=== PATIENT | male | born 1955 | race Caucasian/White ===

== ENCOUNTER 2018-02-15 13:00 | Inpatient (IN) | payer OTHER ==
[~2018-02-15] VITALS: Ht 170.2 cm; Wt 79.0 kg
[~2018-02-15 13:00] MED LIST: ARTIFICIAL TEA3.5 G1 OPH; DEPAKOTE250 M1 PO; FLOMAX0.4 M1 PO; FOLIC ACID1 M1 PO; KEPPRA500 M1 PO; LOVENOX150 MG/1 M SC; MELATONIN3 M4 PO; OLANZAPINE7.5 M1 PO; ONE DAILY COMP1 EACH PO; THIAMINE HCL100 M1 PO; ZYPREXA2.5 M1 PO
--- NOTE | 2018-02-15 13:25 | ED GENERAL ADULT ---
See Addendum History of Present Illness General Chief Complaint: General Adult Stated Complaint: BIBA FOR ABNORMAL LABS Source: patient Exam Limitations: poor historian Vital Signs & Intake/Output Vital Signs & Intake/Output Vital Signs Date Time Temp Pulse Resp B/P B/P Pulse O2 O2 Flow FiO2 Mean Ox Delivery Rate 02/15 1658 98.4 114 18 119/63 96 Room Air 02/15 1445 98.0 80 18 113/66 96 Room Air 02/15 1355 99.2 88 20 125/60 100 Room Air 02/15 1332 98 Room Air 02/15 1310 99.0 109 16 165/94 98 Room Air Allergies Coded Allergies: aspirin (HEART PALPITATIONS 08/04/17) Reconcile Medications Divalproex Sodium (Depakote) 250 MG TABLET.DR 1 TAB PO TID MENTAL HEALTH ( Reported) Duloxetine HCl 40 MG CAPSULE.DR 1 CAP PO 1700 UNKNOWN (Reported) Enoxaparin Sodium (Lovenox) 150 MG/ML SYRINGE 1 INJ SC BID BLOOD THINNER ( Reported) Folic Acid 1 MG TABLET 1 TAB PO DAILY VITAMIN SUPPORT (Reported) Levetiracetam (Keppra) 500 MG TABLET 1 TAB PO BID SEIZURES (Reported) Melatonin 3 MG TABLET 1 TAB PO QPM SLEEP (Reported) Mineral Oil/Petrolatum,White (Artificial Tears Eye Ointment) 15 %-83 % OINT...G. 1 JOSÉ ANTONIO OPH QPM EYE (Reported) Multivitamin With Minerals (One Daily Complete) 1 EACH TABLET 1 TAB PO DAILY VITAMIN SUPPORT (Reported) Olanzapine 7.5 MG TABLET 1 TAB PO QPM MENTAL HEALTH (Reported) Olanzapine (Zyprexa) 2.5 MG TABLET 1 TAB PO DAILY MENTAL HEALTH (Reported) Tamsulosin HCl (Flomax) 0.4 MG CAP.ER.24H 1 CAP PO DAILY PROSTATE (Reported) Tramadol HCl 50 MG TABLET 1 TAB PO Q6P PRN PAIN (Reported) Triage Note: PT TO ER C/C RLE ECCHYMOTIC AREA X 3 DAYS. DENIES KNOWN INJURY OR TRAUMA. PT USES LOVENOX INJ FOR ?CLOTTING DISORDER. H/H FROM LAB WORK TODAY 7.4/22.7 DENIES HX OF NEEDING TRANSFUSION OR ANEMIA. C/O 1 WEEK HX OF DIZZINESS W/ POSITION CHANGE. DENIES BLOOD IN URINE/STOOL/EMESIS. Triage Nurses Notes Reviewed? yes Onset: Evening Duration: hour(s): Timing: recent history HPI: 02/10/18 3 PM 62-year-old male presents to the emergency department for abnormal labs. Apparently the patient lives at [place]. He has a history of traumatic brain injury. He was found to be significantly anemic. He does have a history of a clotting disorder. He does have erythema and edema in his right lower extremity. Past History Travel History Traveled to [place] past 21 day No Medical History Any Pertinent Medical History? see below for history Neurological: TBI SEIZURES Respiratory: obstructive sleep apnea Psychiatric: bipolar disease, schizophrenia Blood Disorders: "CLOTS" Surgical History Surgical History: non-contributory Psychosocial History What is your primary language Armenian Tobacco Use: Current Daily Use Daily Tobacco Use Amount/Type: => 5 Cigarettes daily Family History Hx Contributory? No Review of Systems Review of Systems Constitutional: Reports: see HPI. EENTM: Reports: no symptoms. Respiratory: Reports: no symptoms. Cardiovascular: Reports: no symptoms. GI: Reports: no symptoms. Genitourinary: Reports: no symptoms. Musculoskeletal: Reports: see HPI. Skin: Reports: rash. Neurological/Psychological: Reports: no symptoms. Hematologic/Endocrine: Denies: bruising, bleeding. Immunologic/Allergic: Reports: no symptoms. Physical Exam Physical Exam General Appearance: alert, awake, anxious Head: atraumatic, normal appearance Eyes: Bilateral: normal appearance, PERRL, EOMI. Ears, Nose, Throat: normal pharynx, normal ENT inspection Neck: normal inspection, supple, full range of motion Respiratory: chest non-tender, no respiratory distress Cardiovascular: regular rate/rhythm Peripheral Pulses: 4+ radial (R), 4+ radial (L) Gastrointestinal: non-tender Rectal: heme negative stool Back: normal range of motion Extremities: pedal edema, swelling, tenderness Neurologic/Psych: awake, alert Skin: ecchymosis, rash Core Measures ACS in differential dx? No CVA/TIA Diagnosis: No Sepsis Present: No Sepsis Focused Exam Completed? No Progress Differential Diagnoses I considered the following diagnoses in my evaluation of the patient: [Anemia, hematoma, DVT] Plan of Care: Orders Procedure Date/time Status CBC WITHOUT DIFFERENTIAL 02/16 600 Active BASIC ELECTROLYTES PLUS BUN&CR 02/16 600 Active Heart Healthy Diet 02/15 D Active Lab Add-on Test 02/15 1549 Active Lab Add-on Test 02/15 1547 Active Pathway - chart 02/15 1546 Active House Staff 02/15 1546 Active Patient Data 02/15 1546 Active Code Status 02/15 1546 Active Lab Add-on Test 02/15 1542 Active CULTURE,URINE 02/15 1542 Active URINE LYTES, SPOT 02/15 1542 Active URINALYSIS 02/15 1542 Active BLOOD PRODUCT PICKUP 02/15 1520 Active Patient Data 02/15 1519 Active Add-on Test (ER Only) 02/15 1514 Active Add-on Test (ER Only) 02/15 1512 Active LEUKOCYTE POOR (PACKED CELLS) 02/15 1510 Active ED Holding Orders 02/15 1509 Active Admit to inpatient 02/15 1509 Active Vital Signs 02/15 1509 Active Code Status 02/15 1509 Complete TSH REFLEX 02/15 1323 Active TOTAL IRON BINDING CAPACITY 02/15 1323 Active RETICULOCYTE COUNT 02/15 1323 Complete SERUM OSMOLALITY 02/15 1323 Active LDH (LACT ACID DEHYDROGENASE) 02/15 1323 Active FOLIC ACID 02/15 1323 Active FERRITIN 02/15 1323 Active SERUM IRON 02/15 1323 Active D-DIMER 02/15 1323 Complete VITAMIN B12 02/15 1323 Active URINALYSIS 02/15 1313 Active TROPONIN LEVEL 02/15 1313 Active PROTHROMBIN TIME 02/15 1313 Complete HAPTOGLOBIN 02/15 1313 Active COMPREHENSIVE METABOLIC PANEL 02/15 1313 Active CBC WITHOUT DIFFERENTIAL 02/15 1313 Complete EKG 02/15 1313 Active TYPE & SCREEN (NOT X-MATCH) 02/15 1313 Active VTE Mechanical Prophylaxis 02/15 UNK Active Vital Signs 02/15 UNK Active MISTAKE 02/15 UNK Active Intake & Output 02/15 UNK Active Hemoccult 02/15 UNK Active Activity/Ambulation 02/15 UNK Active Laboratory Tests 02/15/ 1323: Anion Gap 4 L, Estimated GFR > 60, BUN/Creatinine Ratio 30.0 H, Glucose 132 H , Serum Osmolality Pending, Calcium 8.9, Iron 24 L, TIBC 309, Ferritin 94.4, Total Bilirubin 0.5, AST 67 H, ALT 46, Alkaline Phosphatase 60, Lactate Dehydrogenase 531, Troponin I < 0.01, Total Protein 5.5 L, Albumin 2.9 L, Globulin 2.6, Albumin/Globulin Ratio 1.1, Vitamin B12 Pending, Folate > 20.0 H, TSH &T3 &Free T4 Intrp 1.930, PT 14.4 H, INR 1.32 H, D-Dimer High Sensitivty 846 H, CBC w Diff MAN DIFF ORDERED, RBC 2.24 L, MCV 93.4, MCH 31.8 H, MCHC 34.0, RDW 15.1 H, MPV 8.0, Gran % 75.5 H, Lymphocytes % 11.5 L, Monocytes % 12.3 H, Eosinophils % 0.3, Basophils % 0.4, Absolute Granulocytes 6.6 H, Segmented Neutrophils 79 H, Absolute Lymphocytes 1.0 L, Lymphocytes 12 L, Monocytes 8, Absolute Monocytes 1.1 H, Eosinophils 1, Absolute Eosinophils 0, Absolute Basophils 0, Platelet Estimate ADEQUATE, Polychromasia 1+, Hypochromic- Microcytic 2+, Anisocytosis 1+, Retic Count 5.32 H 02/15/18 1313: Haptoglobin Pending Microbiology 02/15 1542 URINE ROUT: Urine Culture - ORD IMPRESSION: 1. No evidence of deep venous thrombosis involving the lower extremity. 2. There are 2 complex fluid collections in the right groin which may be hematomas. DICTATED BY: Naga Monsalve MD DATE/TIME DICTATED:02/15/181605 CHRONOMETER ASSEMBLER:SHAWN DATE/TIME TRANSCRIBED:02/15/181605 CONFIDENTIAL, DO NOT COPY WITHOUT APPROPRIATE AUTHORIZATION. <Electronically signed in Other Vendor System> SIGNED BY: Naga Monsalve MD 02/15/18 1614 Initial ED EKG: none Departure Departure Disposition: STILL A PATIENT Condition: Stable Clinical Impression Primary Impression: Anemia Secondary Impressions: Adverse drug reaction, Hematoma Referrals: Deuce Chery MD (PCP/Family) Departure Forms: Customer Survey General Discharge Information Admission Note Spoke With: Deuce Chery MD Documentation of Exam: Documentation of any treatments & extenuating circumstances including Concerns Regarding Discharge (functional status, medication knowledge or non-compliance, living conditions, etc.) that warrant an admission rather than observation: [He needs admission for blood transfusions, workup of anemia, consider hematology consult, evaluation of the right lower extremity swelling, patient has been on elevated Lovenox dosage Critical Care Note Critical Care Note Critical Care Time: non-applicable
[2018-02-15 13:34] LABS: ABSOLUTE BASOPHIL COUNT 0 /CUMM (0.0-0.2); ABSOLUTE EOSINOPHIL COUNT 0 /CUMM (0.0-0.7)
[2018-02-15 13:38] LABS: ABSOLUTE GRANULOCYTE CT 6.6 /CUMM (1.4-6.5); ABSOLUTE MONOCYTE COUNT 1.1 /CUMM (0.10-0.60); BASOPHIL % 0.4 % (0.0-2.0); EOSINOPHIL % 0.3 % (0-5); GRANULOCYTE % 75.5 % (42.2-75.2); HEMATOCRIT 20.9 % (42-52); MEAN CORPUSCULAR HGB 31.8 PG (27.0-31.0); MEAN CORPUSCULAR VOLUME 93.4 FL (80.0-94.0); PLATELET COUNT 390 /CUMM (130-400); RBC DISTRIBUTION WIDTH 15.1 % (11.5-14.5); RED BLOOD CELL CT 2.24 /CUMM (4.70-6.10); WHITE BLOOD CELL COUNT 8.7 /CUMM (4.8-10.8)
[2018-02-15 13:40] LABS: PT 14.4 SEC (9.4-12.5)
[2018-02-15] MEDS ORDERED: TRAMADOL HCL50 M1 PO (14:30)
[2018-02-15] MEDS ORDERED: DULOXETINE HCL40 MG PO (14:32)
--- NOTE | 2018-02-15 15:37 | History & Physical ---
Benjamin Rojas MD 02/15/18 1537: General Information and HPI MD Statement: I have seen and personally examined ROGER SCHULZ and documented this H&P. The patient is a 62 year old M who presented with a patient stated chief complaint of right lower extremity bruising and low blood counts. Source of Information: patient, old records, [facility] Exam Limitations: no limitations History of Present Illness: 62 year old male with past medical history of alcohol use disorder, bipolar disorder, schizophrenia, traumatic brain injury, seizures/epilepsy, DVT currently on lovenox with reported history of pradaxa failure and IVC filter placement, and fall with subdural hematoma requiring craniotomy was brought in by ambulance from [place] with right lower extremity bruising and a decreased hematocrit and hemoglobin. He is guiaic negative, and receives lovenox 150mg sc bid according to the [facility], although his documented weight is 77kg. 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 Fuentes ([facility]). The patient has been in his usual state of health except for over the past month he has had significant decline in his weight and oral intake, and has lost 19 pounds, currently on meal protein supplementation at [place]. He was complaining of right hip and back pain on 01/19 and was evaluated by orthopedics. They started tramadol because of his history of falls and subdural hematoma to avoid narcotics. X-rays were performed at that time and were reportedly all negative. Three days ago he developed he complained of significant pain of the right hip and stopped ambulating. He was re-evaluated by orthopedics yesterday and significant ecchymosis to the posterior right thigh was noted and they recommended continuing tramadol and icing the leg. There was no history of trauma. He had labs checked at that time and was sent to [facility] for anemia, hemoglobin of 7. He is complaining of significant pain in the right thigh, throbbing 3/10 at rest, that becomes severe with palpation and ambulation. He has bruising along the entirety of the posterior-medial right thigh worsening proximally to the inguinal canal, with additional bruising across his lower abdomen and right axilla. On review of systems, he has been having poor PO intake, weight loss, weakness, malaise, and feeling lightheaded without any chest pain, dyspnea, hematuria, melena, hematochezia or hematemesis. He has a family history of DVT. He is a current smoker 1/4ppd and allergic to aspirin, reportedly with anxiety, palpitations, and dyspnea. In the ED, he was transfused one unit of blood and underwent negative ultrasound for DVT, x-ray negative for fracture in the right leg, and CT abdomen negative for retroperitoneal hemorrhage. Allergies/Medications Allergies: Coded Allergies: aspirin (HEART PALPITATIONS 08/04/17) Home Med list Divalproex Sodium (Depakote) 250 MG TABLET.DR 1 TAB PO TID MENTAL HEALTH ( Reported) Duloxetine HCl 40 MG CAPSULE.DR 1 CAP PO 1700 UNKNOWN (Reported) Enoxaparin Sodium (Lovenox) 150 MG/ML SYRINGE 1 INJ SC BID BLOOD THINNER ( Reported) Folic Acid 1 MG TABLET 1 TAB PO DAILY VITAMIN SUPPORT (Reported) Levetiracetam (Keppra) 500 MG TABLET 1 TAB PO BID SEIZURES (Reported) Melatonin 3 MG TABLET 1 TAB PO QPM SLEEP (Reported) Mineral Oil/Petrolatum,White (Artificial Tears Eye Ointment) 15 %-83 % OINT...G. 1 JOSÉ ANTONIO OPH QPM EYE (Reported) Multivitamin With Minerals (One Daily Complete) 1 EACH TABLET 1 TAB PO DAILY VITAMIN SUPPORT (Reported) Olanzapine 7.5 MG TABLET 1 TAB PO QPM MENTAL HEALTH (Reported) Olanzapine (Zyprexa) 2.5 MG TABLET 1 TAB PO DAILY MENTAL HEALTH (Reported) Tamsulosin HCl (Flomax) 0.4 MG CAP.ER.24H 1 CAP PO DAILY PROSTATE (Reported) Tramadol HCl 50 MG TABLET 1 TAB PO Q6P PRN PAIN (Reported) Compliance With Home Meds: GOOD Past History Travel History Traveled to [place] past 21 day No Medical History Neurological: TBI SEIZURES Respiratory: obstructive sleep apnea Psychiatric: bipolar disease, schizophrenia Blood Disorders: "CLOTS" Surgical History Surgical History: non-contributory Past Family/Social History Family History Relations & Conditions if any FATHER DVT FH: myocardial infarction uncle FH: lung cancer Psychosocial History Smoking Status: Current Everyday Smoker ETOH Use: previous history of abuse Illicit Drug Use: denies illicit drug use Functional Ability ADLs Independent: dressing, eating, toileting, bathing. Ambulation: independent IADLs Needs Assist: shopping, housework, finances, food prep, telephone, transportation, medication admin. Review of Systems Review of Systems Constitutional: Reports: malaise, weakness. Denies: chills, fever. EENTM: Reports: no symptoms. Cardiovascular: Denies: chest pain, palpitations. Respiratory: Reports: no symptoms. GI: Reports: abdominal pain. Denies: constipation, diarrhea, melena, nausea, bloody stool, vomiting. Genitourinary: Denies: dysuria, frequency. Musculoskeletal: Reports: back pain, joint pain. Skin: Reports: no symptoms. Neurological/Psychological: Reports: petit mal seizures. Denies: headache. Hematologic/Endocrine: Reports: bruising, bleeding. Immunologic/Allergic: Reports: no symptoms. All Other Systems: Reviewed and Negative Exam & Diagnostic Data Last 24 Hrs of Vital Signs/I&O Vital Signs Date Time Temp Pulse Resp B/P B/P Pulse O2 O2 Flow FiO2 Mean Ox Delivery Rate 02/15 1445 98.0 80 18 113/66 96 Room Air 02/15 1355 99.2 88 20 125/60 100 Room Air 02/15 1332 98 Room Air 02/15 1310 99.0 109 16 165/94 98 Room Air Intake & Output 02/15 1600 02/15 0800 02/15 0000 Intake Total Output Total Balance Patient 77.111 kg Weight Weight Reported by Patient Measurement Method Physical Exam General Appearance Alert, Oriented X3, Cooperative, No Acute Distress HEENT palpable cranial defect from craniotomy, dry mucous membranes Neck Supple, No JVD Cardiovascular Normal S1, Normal S2, No Murmurs, tachycardic to 120 on examination Lungs Clear to Auscultation, Normal Air Movement Abdomen Normal Bowel Sounds, Soft, No Tenderness, No Masses, ecchymosis on lower abdomen R>L, and right groin Extremities No Clubbing, No Cyanosis, No Edema, Normal Pulses, right thigh swollen and bruised, ecchymosis primarily posterior but extends medially to proximal thigh and inguinal canal, neurovascularly intact RLE, no diminished sensation Last 24 Hrs of Labs/Campbell: Laboratory Tests 02/15/18 1323: Anion Gap 4 L, Estimated GFR > 60, BUN/Creatinine Ratio 30.0 H, Glucose 132 H , Serum Osmolality Pending, Calcium 8.9, Iron 24 L, TIBC Pending, Ferritin Pending, Total Bilirubin 0.5, AST 67 H, ALT 46, Alkaline Phosphatase 60, Lactate Dehydrogenase Pending, Troponin I < 0.01, Total Protein 5.5 L, Albumin 2.9 L, Globulin 2.6, Albumin/Globulin Ratio 1.1, Vitamin B12 Pending, Folate Pending, TSH &T3 &Free T4 Intrp Pending, PT 14.4 H, INR 1.32 H, D-Dimer High Sensitivty 846 H, CBC w Diff NO MAN DIFF REQ, RBC 2.24 L, MCV 93.4, MCH 31.8 H, MCHC 34.0, RDW 15.1 H, MPV 8.0, Gran % 75.5 H, Lymphocytes % 11.5 L, Monocytes % 12.3 H, Eosinophils % 0.3, Basophils % 0.4, Absolute Granulocytes 6.6 H, Absolute Lymphocytes 1.0 L, Absolute Monocytes 1.1 H, Absolute Eosinophils 0, Absolute Basophils 0, Retic Count Pending Microbiology 02/15 1542 URINE ROUT: Urine Culture - ORD Diagnostic Data CXR Results RLE x-ray There is no fracture or malalignment. The right hip and right knee are unremarkable. There are no other bony or soft tissue abnormalities. Other Results CT abdomen/pelvis IMPRESSION: Hemorrhage incompletely included in the right proximal thigh. I suspect hemorrhage involving the right iliacus and bilateral dorsal paraspinal muscles. No retroperitoneal hemorrhage. There is an IVC filter The hemorrhages do not appear contiguous. Correlate with coagulopathy RLE u/s IMPRESSION: 1. No evidence of deep venous thrombosis involving the lower extremity. 2. There are 2 complex fluid collections in the right groin which may be hematomas. Assessment/Plan Assessment: 62 year old male with past medical history of alcohol use disorder, bipolar disorder, schizophrenia, seizures/epilepsy, 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 Fuentes , traumatic brain injury and h/o subdural hematoma requiring craniotomy and IVC filter placement perioperatively, was brought in by ambulance from [place] with right lower extremity bruising and a decreased hematocrit and hemoglobin. He is guiaic negative, and receives lovenox 150mg sc bid according to the [facility], which is the likely the cause of his bleeding. Anemia: acute blood loss 2 large bore IVs Check CT abdomen pelvis to rule out retroperitoneal hematoma Hemoglobin 7.1, last 12-13 in November MCV 93, reticulocytes 5.4, iron studies pending Hold lovenox Type and screen Transfuse 1 unit pRBCs, will likely need another given tachycardia Repeat CBC post transfusion Femur x-ray negative for fracture, lower extremity ultrasound negative for DVT Contact Dr. Fuentes, hematology to obtain records discuss lovenox, [phone] Consider surgery for assessment of compartment pressures Check creatine kinase and lactic acid Intravascular volume resuscitation with normal saline Hyponatremia: hypovolemic from acute blood loss Serum sodium 129, last 141 only 4 days prior to admission Check serum and urine osmoles, and electrolytes Hypovolemic, with orthostatic vital signs per my exam, tachycardia upon sitting >120 Elevated bicarb, low chloride, prerenal azotemia, elevated BUN:Cr ratio NS and packed red blood cell transfusion for intravascular volume resuscitation for labs consistent with contraction alkalosis and hypovolemia Repeat BEP after blood and crystalloid to reassess sodium Valproic acid levels subtherapeutic, unlikely cause of hyponatremia Check TSHR Psych,Seizures, h/o TBI: Continue keppra, zyprexa, cymbalta, and depakote If sodium fails to improve with fluid resuscitation, consider these medications as contributors Regular diet DVT ppx-mechanical ALPs, lovenox on hold Full code As Ranked By This Provider Problem List: 1. Hematoma 2. Acute blood loss anemia 3. Anemia Core Measures/Misc (05/07) Acute Coronary Syndrome ACS Diagnosis: No Congestive Heart Failure Congestive Heart Failure Diagnosis No Cerebrovascular Accident CVA/TIA Diagnosis: No VTE (View Protocol) VTE Risk Factors Age>40 No Mechanical VTE Prophylaxis d/t N/A MechProphylax Ordered No VTE Pharm Prophylaxis d/t Bleeding (Active) Sepsis (View protocol) Sepsis Present: No If YES complete Sepsis Event Note If YES complete Sepsis Event Note Adry DOMINGO,Bess 02/15/18 1543: Core Measures/Misc (05/07) Sepsis (View protocol) If YES complete Sepsis Event Note If YES complete Sepsis Event Note Resident Review Statement Resident Statement: examined this patient, discussed with internal controls consultant, agreed with internal controls consultant, discussed with family, reviewed EMR data (avail), discussed with nursing , discussed with case mgmt, reviewed images, amended to note Other Findings: Patient is a 62-year-old male with past history significant for bipolar disorder , clotting disorder with warfarin/Pradaxa failure, IVC filter placement, epilepsy, subdural hematoma status post cranioplasty presented to [facility] after found to have abnormal labs at the facility. Patient started experiencing right thigh ecchymosis for the past few days which progressively got worse. Today morning patient was unable to move and upon checking CBC it was found to that hemoglobin dropped to 7.4/22.7. He was sent to ER for further evaluation. Patient denies any acute trauma. He usually takes his subcutaneous Lovenox shots into his abdomen. Medications to be confirmed with facility Assessment Patient is 62-year-old gentleman with significant clotting history, IVC filter and previous oral warfarin and dabigatran failure subsequently started on subcutaneous Lovenox. He started having right thigh ecchymosis for the past few days with no obvious trauma. Vital signs are significant for tachycardia. Physical exam which was significant ecchymosis in the right eye region extending throughout. Pulses present. No abdominal tenderness. Labs as noted above had significant drop in H&H compared to previous hemoglobin level. Imaging is significant for 2 large fluid collections right groin and right thigh. No evident vascular injury are vascular source. Imaging ruled out retroperitoneal reticulation of blood. Confined to musculature. Problem list 1. Hematoma involving Paraspinal and iliacus muscles 2. Acute blood loss anemia 3. Clotting disorder with IVC filter in place, on subcutaneous Lovenox 4. Hyponatremia 5. Bipolar disorder 6. Epilepsy 7. Subdural hematoma with history of right cranioplasty Plan Admitted to general medicine floor Transfuse with hemoglobin goal greater than 8 Hold subcutaneous Lovenox Hematology consult - patient follows Dr. Fuentes Frequent CBC to monitor improvement/further bleeding Check urine osmolarity, serum was positive and urine lites Agree with 1 L of normal saline but needs frequent checking of sodium Frequent examinations of right thigh Warm compressions and ice packings of right thigh Continue home medications including divalproex 250 mg TID, olanzapine 2.5 mg QAM /7.5 mg QPM Continue Flomax 0.4 mg daily Need confirmation about off on Keppra (per patient) from the facility DVT prophylaxis with Alps Full code
--- NOTE | 2018-02-15 16:14 | ULTRASOUND REPORT ---
EXAMINATION: US TRIPLEX LOWER EXTREMITY, RIGHT CLINICAL INFORMATION: Edema, swelling, skin changes. COMPARISON: None TECHNIQUE: Color-flow triplex imaging with spectral analysis and compression Doppler were performed on the lower extremity. FINDINGS: Respiratory variation, normal compression and augmented flow are noted throughout the lower extremity. The visualized common femoral vein, superficial femoral vein, profunda femoral vein, popliteal vein and midcalf peroneal and posterior tibial venous segments show no evidence of deep venous thrombosis. There is no Lawler's cyst. There are 2 adjacent complex fluid collections in the right groin, right thigh. There is bruising over this area. May be a hematoma therefore. The collection is nonvascular with low-level echoes. There is a collection measuring 12.6 x 4.5 x 6.7 cm. There is a collection measuring 8.3 x 2.1 x 2.7 cm. IMPRESSION: 1. No evidence of deep venous thrombosis involving the lower extremity. 2. There are 2 complex fluid collections in the right groin which may be hematomas.
--- NOTE | 2018-02-15 16:52 | RADIOLOGY REPORT ---
EXAMINATION: XR FEMUR, RIGHT CLINICAL INFORMATION: Swelling right lower extremity. COMPARISON: None TECHNIQUE: AP and frog lateral views (7 images) of the right femur were obtained. FINDINGS: There is no fracture or malalignment. The right hip and right knee are unremarkable. There are no other bony or soft tissue abnormalities. IMPRESSION: Unremarkable radiographs of the right femur.
[2018-02-15 18:30] VITALS: BP 122/70
--- NOTE | 2018-02-15 18:38 | CT SCAN REPORT ---
EXAMINATION: CT ABDOMEN AND PELVIS WITHOUT CONTRAST CLINICAL INFORMATION: Acute blood loss.. Anemia COMPARISON: None TECHNIQUE: Multidetector volumetric imaging was performed from the superior aspect of the liver through the pubic symphysis. Sagittal and coronal reformatted images were obtained on the technologist's workstation. DLP: 430 mGy-cm FINDINGS: LUNG BASES: No suspicious abnormality in the visualized lower chest LIVER, GALLBLADDER, AND BILIARY TREE: No suspicious focal liver lesion. There is no opaque gallstone. There is no biliary dilation. PANCREAS: No suspicious abnormality SPLEEN: Within normal limits ADRENAL GLANDS: Normal KIDNEYS AND URETERS: There is a 0.5 cm nonobstructing lower pole left renal calculus. No significant dilation of the intrarenal collecting system on either side. There is a partially exophytic 1.7 cm intermediate density lesion arising from the posterior mid right kidney. This does not have the CT features of a simple cyst. There is a 2 mm nonobstructing upper pole right renal calculus. BLADDER: The bladder is distended. No focal abnormality. GASTROINTESTINAL TRACT: No localized colonic wall thickening. No small bowel dilation. The stomach is not well distended. ABDOMINAL WALL: There are nodular densities in the superficial fat likely related to injections. The lowest images suggest a hematoma in the medial right thigh. This is not completely included. This could represent acute or subacute hemorrhage. Stranding extends towards the inguinal canal. There is stranding in the ventral soft tissues at the right groin. LYMPH NODES: There are no enlarged abdominal or pelvic lymph nodes. There is no free intraperitoneal fluid. VASCULAR: There is no abdominal aortic aneurysm. There is no retroperitoneal hemorrhage. The psoas muscles are fairly symmetric. There is an asymmetric enlargement of the right iliac is. This may represent a hematoma. There may be some enlargement of the dorsal soft tissues on the right in the lumbar region. This extends into the lower thorax. There is some asymmetric enlargement of the dorsal soft tissues of the lumbosacral junction on the left. There is an IVC filter. PELVIC VISCERA: Coarse calcifications. No suspicious mass OSSEOUS STRUCTURES: There is ankylosis of the SI joints. No acute fracture demonstrated. IMPRESSION: Hemorrhage incompletely included in the right proximal thigh. I suspect hemorrhage involving the right iliacus and bilateral dorsal paraspinal muscles. No retroperitoneal hemorrhage. There is an IVC filter The hemorrhages do not appear contiguous. Correlate with coagulopathy
--- NOTE | 2018-02-15 18:45 | Admission Certification ---
Admission Certification Certification Statement - As attending physician, I certify that at the time of - admission, based on clinical presentation, severity of - symptoms, need for further diagnostic testing and - therapeutic interventions, and risk of adverse outcomes - without in-hospital treatment, in my clinical assessment, - this patient requires an acute hospital stay for a minimum - of two nights or longer. I have also considered psychsocial - factors such as support system, advanced age, financial - issues, cognitive issues, and failed out-patient treatments, - past re-admission history, safety of patient, and lack of - compliance as applicable. Specific rationale supporting this admission is: Anemia possibly blood loss. Hematoma right thigh and hip area. Right leg pain.
--- NOTE | 2018-02-15 18:50 | PN- Att Addend ---
Attending Addendum Attending Brief Note 62-year-old white male right now at [facility], being transitioned to independent living, but has had some trouble with pain in his right hip and leg area, just saw his orthopedic doctor, the only finding was a hematoma in that area but no fractures. Patient has pain in that area. Also when blood work was performed was found to be pretty anemic compared to his baseline on his last blood work. Also his BUN is slightly elevated and his sodium was. Case was discussed with resident. Besides abnormalities on the right thigh will get a CT scan of the abdomen and pelvis to make sure he does not have any internal bleeding. Anticoagulation is on is on Lovenox from his history of DVT. 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 Patient will get a unit of red packed cells monitor H&H closely. Will have gentle hydration. Follow-up his blood work in the morning. Current Medications Sig/María Start time Last Medication Dose Route Stop Time Status Admin Cyanocobalamin 1,000 MCG DAILY 02/15 1837 AC PO Divalproex Sodium 250 MG TID 02/15 2100 AC PO Duloxetine HCl 40 MG 1700 02/16 1700 AC PO Folic Acid 1 MG DAILY 02/15 1832 AC PO Melatonin 3 MG QPM 02/15 2100 AC PO Multivitamins 1 TAB DAILY 02/16 0900 AC PO Olanzapine 2.5 MG DAILY 02/16 0900 AC PO Olanzapine 7.5 MG QPM 02/15 2100 AC PO Sodium Chloride 1,000 ML BOLUS ONE 02/15 1730 AC 02/15 IV 02/15 1929 1845 Tamsulosin HCl 0.4 MG DAILY 02/15 1835 AC PO Tramadol HCl 50 MG Q6P PRN 02/15 1845 AC PO Laboratory Tests 02/15/18 1323: Anion Gap 4 L, Estimated GFR > 60, BUN/Creatinine Ratio 30.0 H, Glucose 132 H , Serum Osmolality Pending, Calcium 8.9, Iron 24 L, TIBC 309, Ferritin 94.4, Total Bilirubin 0.5, AST 67 H, ALT 46, Alkaline Phosphatase 60, Lactate Dehydrogenase 531, Troponin I < 0.01, Total Protein 5.5 L, Albumin 2.9 L, Globulin 2.6, Albumin/Globulin Ratio 1.1, Vitamin B12 378, Folate > 20.0 H, TSH &T3 &Free T4 Intrp 1.930, PT 14.4 H, INR 1.32 H, D-Dimer High Sensitivty 846 H, CBC w Diff MAN DIFF ORDERED, RBC 2.24 L, MCV 93.4, MCH 31.8 H, MCHC 34.0, RDW 15.1 H, MPV 8.0, Gran % 75.5 H, Lymphocytes % 11.5 L, Monocytes % 12.3 H , Eosinophils % 0.3, Basophils % 0.4, Absolute Granulocytes 6.6 H, Segmented Neutrophils 79 H, Absolute Lymphocytes 1.0 L, Lymphocytes 12 L, Monocytes 8, Absolute Monocytes 1.1 H, Eosinophils 1, Absolute Eosinophils 0, Absolute Basophils 0, Platelet Estimate ADEQUATE, Polychromasia 1+, Hypochromic- Microcytic 2+, Anisocytosis 1+, Retic Count 5.32 H 02/15/18 1313: Haptoglobin Pending Vital Signs Date Time Temp Pulse Resp B/P B/P Pulse O2 O2 Flow FiO2 Mean Ox Delivery Rate 02/15 1724 98.3 115 16 114/65 96 Room Air 02/15 1658 98.4 114 18 119/63 96 Room Air 02/15 1445 98.0 80 18 113/66 96 Room Air 02/15 1355 99.2 88 20 125/60 100 Room Air 02/15 1332 98 Room Air 02/15 1310 99.0 109 16 165/94 98 Room Air Intake & Output 02/15 1600 Intake Total Output Total Balance Patient 170 lb Weight Weight Reported by Patient Measurement Method His albumin is low we will get a dietary consult.
[2018-02-15 21:14] LABS: ABSOLUTE BASOPHIL COUNT 0 /CUMM (0.0-0.2); ABSOLUTE EOSINOPHIL COUNT 0.1 /CUMM (0.0-0.7); ABSOLUTE GRANULOCYTE CT 5.5 /CUMM (1.4-6.5); ABSOLUTE LYMPH COUNT 1.2 /CUMM (1.2-3.4); ABSOLUTE MONOCYTE COUNT 1.1 /CUMM (0.10-0.60); BASOPHIL % 0.2 % (0.0-2.0); EOSINOPHIL % 0.8 % (0-5); GRANULOCYTE % 70.3 % (42.2-75.2); MEAN CORPUSCULAR HGB 30.9 PG (27.0-31.0); MEAN CORPUSCULAR HGB CONC 32.9 G/DL (33.0-37.0); MEAN PLATELET VOLUME 8.8 FL (7.4-10.4); PLATELET COUNT 362 /CUMM (130-400); RBC DISTRIBUTION WIDTH 15.6 % (11.5-14.5); RED BLOOD CELL CT 2.45 /CUMM (4.70-6.10); WHITE BLOOD CELL COUNT 7.9 /CUMM (4.8-10.8)
[2018-02-15 22:18] VITALS: BP 120/60
[2018-02-16 06:14] VITALS: BP 106/66
--- NOTE | 2018-02-16 07:48 | PN- Housestaff ---
Subjective Follow-up For: acute blood loss anemia Subjective: patient has continue RLE pain but no new complaints afebrile overnight CBC now stable s/p 2u prbcs Review of Systems Constitutional: Reports: see HPI. Objective Last 24 Hrs of Vital Signs/I&O Vital Signs Date Time Temp Pulse Resp B/P B/P Pulse O2 O2 Flow FiO2 Mean Ox Delivery Rate 02/16 0847 98.0 110 20 106/66 02/16 0614 98.0 110 20 106/66 96 Room Air 02/15 2218 97.9 116 20 120/60 96 02/15 2117 110 120/60 02/15 1830 98.6 104 18 122/70 96 Room Air 02/15 1724 98.3 115 16 114/65 96 Room Air 02/15 1658 98.4 114 18 119/63 96 Room Air 02/15 1445 98.0 80 18 113/66 96 Room Air 02/15 1355 99.2 88 20 125/60 100 Room Air 02/15 1332 98 Room Air 02/15 1310 99.0 109 16 165/94 98 Room Air Intake & Output 02/16 1600 02/16 0800 02/16 0000 Intake Total 1536 1850 Output Total 675 600 Balance 861 1250 Intake, Blood 700 375 Product Intake, IV 356 1075 Intake, Oral 480 400 Output, Urine 675 600 Patient 80.513 kg 75.75 kg Weight Weight Bed scale Bed scale Measurement Method Physical Exam General Appearance: Alert, Oriented X3, Cooperative, No Acute Distress Cardiovascular: Normal S1, Normal S2, No Murmurs, remains tachycardic Lungs: Clear to Auscultation, Normal Air Movement Abdomen: Normal Bowel Sounds, Soft, No Tenderness, No Masses Extremities: No Clubbing, No Cyanosis, No Edema, Normal Pulses Current Medications: Current Medications Sig/María Start time Last Medication Dose Route Stop Time Status Admin Acetaminophen 650 MG Q6-PRN PRN 02/15 2045 AC PO Cyanocobalamin 1,000 MCG DAILY 02/15 1837 AC 02/16 PO 0847 Divalproex Sodium 250 MG TID 02/15 2100 AC 02/16 PO 0847 Duloxetine HCl 40 MG 1700 02/16 1700 AC PO Ferrous Sulfate 325 MG DAILY 02/16 0900 AC 02/16 PO 0847 Folic Acid 1 MG DAILY 02/15 1832 AC 02/16 PO 0847 Lactated Ringer's 1,000 ML ONCE ONE 02/16 0730 AC 02/16 IV 02/16 1729 0800 Levetiracetam 500 MG BID 02/15 2100 02/16 PO 0847 Melatonin 3 MG QPM 02/15 2100 02/15 PO 2116 Multivitamins 1 TAB DAILY 02/16 0900 02/16 PO 0847 Olanzapine 2.5 MG DAILY 02/16 0900 02/16 PO 0847 Olanzapine 7.5 MG QPM 02/15 2100 02/15 PO 2116 Oxycodone HCl 5 MG Q6P PRN 02/15 2045 02/16 PO 0623 Sodium Chloride 1,000 ML Q13H 02/15 2145 02/15 IV 02/16 1044 2202 Sodium Chloride 1,000 ML ONCE ONE 02/15 1945 GA 02/15 IV 02/16 0904 2054 Sodium Chloride 1,000 ML BOLUS ONE 02/15 1730 DC 02/15 IV 02/15 1929 1845 Tamsulosin HCl 0.4 MG DAILY 02/15 183 02/16 PO 0847 Tramadol HCl 50 MG Q6P PRN 02/15 1845 02/15 PO 2350 Last 24 Hrs of Lab/[place]bell Results Last 24 Hrs of Labs/Mics: Laboratory Tests 02/16/18 1000: Anion Gap 7, Estimated GFR > 60, BUN/Creatinine Ratio 26.3 H, Creatine Kinase Pending 02/16/18 0636: CBC w Diff NO MAN DIFF REQ, RBC 2.56 L, MCV 93.1, MCH 30.9, MCHC 33.2, RDW 16.1 H, MPV 8.7, Gran % 70.3, Lymphocytes % 15.0 L, Monocytes % 13.1 H, Eosinophils % 1.1, Basophils % 0.5, Absolute Granulocytes 4.5, Absolute Lymphocytes 1.0 L, Absolute Monocytes 0.8 H, Absolute Eosinophils 0.1, Absolute Basophils 0 02/15/18 2300: Sodium Cancelled, Potassium Cancelled, Chloride Cancelled, Carbon Dioxide Cancelled, Anion Gap Cancelled, BUN Cancelled, Creatinine Cancelled, BUN/ Creatinine Ratio Cancelled, CBC w Diff Cancelled, WBC Cancelled, RBC Cancelled, Hgb Cancelled, Hct Cancelled, MCV Cancelled, MCH Cancelled, MCHC Cancelled, RDW Cancelled, Plt Count Cancelled, MPV Cancelled 02/15/182026: Anion Gap 6, Estimated GFR > 60, BUN/Creatinine Ratio 30.0 H, Creatine Kinase 1269 H, CBC w Diff NO MAN DIFF REQ, RBC 2.45 L, MCV 94.0, MCH 30.9, MCHC 32.9 L, RDW 15.6 H, MPV 8.8, Gran % 70.3, Lymphocytes % 14.9 L, Monocytes % 13.8 H , Eosinophils % 0.8, Basophils % 0.2, Absolute Granulocytes 5.5, Absolute Lymphocytes 1.2, Absolute Monocytes 1.1 H, Absolute Eosinophils 0.1, Absolute Basophils 0 02/15/182020: Urine Color YEL, Urine Clarity CLEAR, Urine pH 6.5, Ur Specific [place] 1.010, Urine Protein NEG, Urine Ketones NEG, Urine Nitrite NEG, Urine Bilirubin NEG, Urine Urobilinogen 1.0, Ur Leukocyte Esterase TRACE H, Ur Microscopic SEDIMENT EXAMINED, Urine RBC RARE, Urine WBC 1-3 H, Ur Epithelial Cells FEW, Urine Bacteria FEW H, Urine Mucus RARE, Urine Hemoglobin NEG, Urine Glucose NEG 02/15/182020: Urine Osmolality 367, Ur Random Creatinine 60.4, Ur Random Sodium < 5 L, Ur Random Potassium 32.6, Fraction Sodium Excret 02/15/18 1323: Anion Gap 4 L, Estimated GFR > 60, BUN/Creatinine Ratio 30.0 H, Glucose 132 H , Serum Osmolality 291, Calcium 8.9, Iron 24 L, TIBC 309, Ferritin 94.4, Total Bilirubin 0.5, AST 67 H, ALT 46, Alkaline Phosphatase 60, Lactate Dehydrogenase 531, Troponin I < 0.01, Total Protein 5.5 L, Albumin 2.9 L, Globulin 2.6, Albumin/Globulin Ratio 1.1, Vitamin B12 378, Folate > 20.0 H, TSH &T3 &Free T4 Intrp 1.930, PT 14.4 H, INR 1.32 H, D-Dimer High Sensitivty 846 H, CBC w Diff MAN DIFF ORDERED, RBC 2.24 L, MCV 93.4, MCH 31.8 H, MCHC 34.0, RDW 15.1 H, MPV 8.0, Gran % 75.5 H, Lymphocytes % 11.5 L, Monocytes % 12.3 H, Eosinophils % 0.3, Basophils % 0.4, Absolute Granulocytes 6.6 H, Segmented Neutrophils 79 H, Absolute Lymphocytes 1.0 L, Lymphocytes 12 L, Monocytes 8, Absolute Monocytes 1.1 H, Eosinophils 1, Absolute Eosinophils 0, Absolute Basophils 0, Platelet Estimate ADEQUATE, Polychromasia 1+, Hypochromic-Microcytic 2+, Anisocytosis 1+, Retic Count 5.32 H 02/15/18 1313: Haptoglobin Pending, Urine Color Cancelled, Urine Clarity Cancelled, Urine pH Cancelled, Ur Specific [place] Cancelled, Urine Protein Cancelled, Urine Ketones Cancelled, Urine Nitrite Cancelled, Urine Bilirubin Cancelled, Urine Urobilinogen Cancelled, Ur Leukocyte Esterase Cancelled, Ur Microscopic Cancelled, Urine Hemoglobin Cancelled, Urine Glucose Cancelled Microbiology 02/15 1930 URINE ROUT: Urine Culture - RES Assessment/Plan Assessment: 62 year old male with past medical history of alcohol use disorder, bipolar disorder, schizophrenia, seizures/epilepsy, 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 Fuentes , traumatic brain injury and h/o subdural hematoma requiring craniotomy and IVC filter placement perioperatively, was brought in by ambulance from [facility] with right lower extremity bruising and a decreased hematocrit and hemoglobin. He is guiaic negative, and receives lovenox 150mg sc bid according to the W10, which is the likely the cause of his bleeding. Anemia: acute blood loss Hemoglobin 7.1, CBC now stable s/p 2 units transfusion, patient remains tachycardic Continue lactated ringers Called [facility] [phone], last note 07/2017 prescribed 150mg lovenox DAILY, addressed to [facility] but their W10 was being administered TWICE DAILY Repeat CK Hyponatremia: hypovolemic from acute blood loss Serum sodium 129, last 141 only 4 days prior to admission Hypovolemic, with orthostatic vital signs per my exam, tachycardia upon sitting >120 Elevated bicarb, low chloride, prerenal azotemia, elevated BUN:Cr ratio Repeat sodium now wnl after intravascular volume resuscitation with RBCs/ crystalloid Psych,Seizures, h/o TBI: Continue keppra, zyprexa, cymbalta, and depakote If sodium fails to improve with fluid resuscitation, consider these medications as contributors Weight loss: Nutrition consult for dietary supplementation Regular diet DVT ppx-mechanical ALPs, lovenox on hold Full code Problem List: 1. Acute blood loss anemia Pain Ratin Pain Location: RLE Pain Goal: Pain 4 or less Pain Plan: prn Tomorrow's Labs & Rationales: cbc, bep Pain Goal: Pain 4 or less Pain Plan: prn Tomorrow's Labs & Rationales: cbc, bep
--- NOTE | 2018-02-16 08:37 | Cons- Hematology ---
General Information and HPI Consulting Request Date of Consult: 02/16/18 Requested By: Deuce Chery MD Reason for Consult: anemia, DVT Source of Information: patient, old records Exam Limitations: no limitations History of Present Illness: Mr. Hutson is a 62 year old male with history of alcohol use disorder, bipolar disorder, schizophrenia, traumatic brain injury, seizures/epilepsy, DVT currently on lovenox s/p IVC filter and previous rivaroxaban/dabigatran failure, subdural hematoma requiring craniotomy who presented to the [facility] for anemia and right thigh bruising. He has had bruising in the right thigh for past 2 days. He denies any trauma. He denies any other bruising. He does have some bruising in his abdomen. He has more pain in his right thigh. He has no blood in the stool or urine per the patient. He has not had any nosebleeds. He has no hemoptysis or hematemesis. He is currently getting enoxaparin 150 mg twice a day. He has been getting this since June 2017. He is currently being followed by Dr. Ezequiel Fuentes and was last seen in July 2017. The patient does note that he has been losing weight over last few months. He lost about 20 pounds. He states that after adjustment of the Keppra his weight has improved. On admission ultrasound of the lower extremity and CT scan of the abdomen pelvis demonstrated right proximal thigh hematoma. His hemoglobin was noted to be 7.1 with hematocrit of 20.9. Platelet count and white counts are normal. He was transfused with 2 units of packed RBC. Enoxaparin has been held. He feels low bit better since transfusion. Allergies/Medications Allergies: Coded Allergies: aspirin (HEART PALPITATIONS 08/04/17) Home Med List: Divalproex Sodium (Depakote) 250 MG TABLET.DR 1 TAB PO TID MENTAL HEALTH ( Reported) Duloxetine HCl 40 MG CAPSULE.DR 1 CAP PO 1700 UNKNOWN (Reported) Enoxaparin Sodium (Lovenox) 150 MG/ML SYRINGE 1 INJ SC BID BLOOD THINNER ( Reported) Folic Acid 1 MG TABLET 1 TAB PO DAILY VITAMIN SUPPORT (Reported) Levetiracetam (Keppra) 500 MG TABLET 1 TAB PO BID SEIZURES (Reported) Melatonin 3 MG TABLET 1 TAB PO QPM SLEEP (Reported) Mineral Oil/Petrolatum,White (Artificial Tears Eye Ointment) 15 %-83 % OINT...G. 1 JOSÉ ANTONIO OPH QPM EYE (Reported) Multivitamin With Minerals (One Daily Complete) 1 EACH TABLET 1 TAB PO DAILY VITAMIN SUPPORT (Reported) Olanzapine 7.5 MG TABLET 1 TAB PO QPM MENTAL HEALTH (Reported) Olanzapine (Zyprexa) 2.5 MG TABLET 1 TAB PO DAILY MENTAL HEALTH (Reported) Tamsulosin HCl (Flomax) 0.4 MG CAP.ER.24H 1 CAP PO DAILY PROSTATE (Reported) Tramadol HCl 50 MG TABLET 1 TAB PO Q6P PRN PAIN (Reported) Current Medications: Current Medications Sig/María Start time Last Medication Dose Route Stop Time Status Admin Acetaminophen 650 MG Q6-PRN PRN 02/15 2045 AC PO Cyanocobalamin 1,000 MCG DAILY 02/15 183 AC 02/15 PO 211 Divalproex Sodium 250 MG TID 02/15 2100 AC 02/15 PO 211 Duloxetine HCl 40 MG 1700 02/16 1700 AC PO Ferrous Sulfate 325 MG DAILY 02/16 0900 AC PO Folic Acid 1 MG DAILY 02/15 183 AC 02/15 PO 211 Lactated Ringer's 1,000 ML ONCE ONE 02/16 0730 AC IV 02/16 1729 Levetiracetam 500 MG BID 02/15 2100 AC 02/15 PO 211 Melatonin 3 MG QPM 02/15 2100 AC 02/15 PO 211 Multivitamins 1 TAB DAILY 02/16 0900 AC PO Olanzapine 2.5 MG DAILY 02/16 0900 AC PO Olanzapine 7.5 MG QPM 02/15 2100 AC 02/15 PO 211 Oxycodone HCl 5 MG Q6P PRN 02/15 204 AC 02/16 PO 0623 Sodium Chloride 1,000 ML Q13H 02/15 2145 AC 02/15 IV 02/16 1044 2202 Sodium Chloride 1,000 ML ONCE ONE 02/15 1945 DC 02/15 IV 02/16 0904 2054 Sodium Chloride 1,000 ML BOLUS ONE 02/15 1730 DC 02/15 IV 02/15 1929 1845 Tamsulosin HCl 0.4 MG DAILY 02/15 183 AC 02/15 PO 211 Tramadol HCl 50 MG Q6P PRN 02/15 1845 AC 02/15 PO 2350 Review of Systems Review of Systems Constitutional: Denies: chills, diaphoresis, fever, weakness. Cardiovascular: Denies: chest pain. Respiratory: Denies: short of breath. GI: Denies: abdominal pain, melena, bloody stool. Genitourinary: Denies: hematuria. Musculoskeletal: Reports: joint pain, muscle pain. Skin: Reports: see HPI. Neurological/Psychological: Reports: ataxia. Hematologic/Endocrine: Reports: bruising. Denies: bleeding. All Other Systems: Reviewed and Negative Past History Travel History Traveled to [place] past 21 day No Medical History Blood Transfusion Hx: Yes Neurological: TBI SEIZURES SUBDURAL HEMATOMA Cardiovascular: NONE Respiratory: obstructive sleep apnea Gastrointestinal: NONE Hepatic: NONE Renal: NONE Psychiatric: bipolar disease, schizophrenia Endocrine: NONE Blood Disorders: DVT Surgical History Surgical History: non-contributory Family History Relations & Conditions If Any: FATHER DVT FH: myocardial infarction uncle FH: lung cancer Psychosocial History Where Do You Live? Long-Term Facility Smoking Status: Current Everyday Smoker ETOH Use: previous history of abuse Illicit Drug Use: denies illicit drug use Functional Ability ADLs Independent: dressing, eating, toileting, bathing. Ambulation: independent IADLs Needs Assist: shopping, housework, finances, food prep, telephone, transportation, medication admin. Exam & Diagnostic Data Vital Signs and I&O Vital Signs Date Time Temp Pulse Resp B/P B/P Pulse O2 O2 Flow FiO2 Mean Ox Delivery Rate 02/16 0614 98.0 110 20 106/66 96 Room Air 02/15 2218 97.9 116 20 120/60 96 02/15 2117 110 120/60 02/15 1830 98.6 104 18 122/70 96 Room Air 02/15 1724 98.3 115 16 114/65 96 Room Air 02/15 1658 98.4 114 18 119/63 96 Room Air 02/15 1445 98.0 80 18 113/66 96 Room Air 02/15 1355 99.2 88 20 125/60 100 Room Air 02/15 1332 98 Room Air 02/15 1310 99.0 109 16 165/94 98 Room Air Intake & Output 02/16 1600 02/16 0800 02/16 0000 Intake Total 1536 1850 Output Total 675 600 Balance 861 1250 Intake, Blood 700 375 Product Intake, IV 356 1075 Intake, Oral 480 400 Output, Urine 675 600 Patient 80.513 kg 75.75 kg Weight Weight Bed scale Bed scale Measurement Method Physical Exam General Appearance: well developed/nourished, no apparent distress, alert, awake , comfortable Head: atraumatic Eyes: Bilateral: PERRL, EOMI. Respiratory: normal breath sounds, chest non-tender, no respiratory distress, quiet respiration Cardiovascular: tachycardia Gastrointestinal: normal bowel sounds, soft, non-tender, no organomegaly Extremities: right thigh hematoma Neurologic/Psych: awake, alert, oriented x 3 Skin: ecchymosis (right thigh, abdomen) Lymphatic: no anterior cervical florina Last 48 Hours of Lab Results: Laboratory Tests 02/16 02/15 02/15 0636 2300 2027 Chemistry Sodium (137 - 145 mmol/L) Cancelled 136 L Potassium (3.5 - 5.1 mmol/L) Cancelled 4.2 Chloride (98 - 107 mmol/L) Cancelled 100 Carbon Dioxide (22 - 30 mmol/L) Cancelled 30 Anion Gap (5 - 16) Cancelled 6 BUN (9 - 20 mg/dL) Cancelled 24 H Creatinine (0.7 - 1.2 mg/dL) Cancelled 0.8 Estimated GFR (>60 ml/min) > 60 BUN/Creatinine Ratio (7 - 25 %) Cancelled 30.0 H Creatine Kinase (55 - 170 U/L) 1269 H Hematology CBC w Diff Pending Cancelled NO MAN DIFF REQ WBC (4.8 - 10.8 /CUMM) Pending Cancelled 7.9 RBC (4.70 - 6.10 /CUMM) Pending Cancelled 2.45 L Hgb (14.0 - 18.0 G/DL) Pending Cancelled 7.6 L Hct (42 - 52 %) Pending Cancelled 23.0 L MCV (80.0 - 94.0 FL) Pending Cancelled 94.0 MCH (27.0 - 31.0 PG) Pending Cancelled 30.9 MCHC (33.0 - 37.0 G/DL) Pending Cancelled 32.9 L RDW (11.5 - 14.5 %) Pending Cancelled 15.6 H Plt Count (130 - 400 /CUMM) Pending Cancelled 362 MPV (7.4 - 10.4 FL) Pending Cancelled 8.8 Gran % (42.2 - 75.2 %) 70.3 Lymphocytes % (20.5 - 51.1 %) 14.9 L Monocytes % (1.7 - 9.3 %) 13.8 H Eosinophils % (0 - 5 %) 0.8 Basophils % (0.0 - 2.0 %) 0.2 Absolute Granulocytes (1.4 - 6.5 /CUMM) 5.5 Absolute Lymphocytes (1.2 - 3.4 /CUMM) 1.2 Absolute Monocytes (0.10 - 0.60 /CUMM) 1.1 H Absolute Eosinophils (0.0 - 0.7 /CUMM) 0.1 Absolute Basophils (0.0 - 0.2 /CUMM) 0 02/15 Urines Urine Color (YEL,AMB,STR) YEL Urine Clarity (CLEAR) CLEAR Urine pH (5.0 - 8.0) 6.5 Ur Specific [place] (1.001 - 1.035) 1.010 Urine Protein (NEG,<30 MG/DL) NEG Urine Ketones (NEG) NEG Urine Nitrite (NEG) NEG Urine Bilirubin (NEG) NEG Urine Urobilinogen (0.1 - 1.0 EU/dl) 1.0 Ur Leukocyte Esterase (NEG) TRACE H Ur Microscopic SEDIMENT EXAMINED Urine RBC (0 - 5 /HPF) RARE Urine WBC (0 - 2 /HPF) 1-3 H Ur Epithelial Cells (NONE,FEW) FEW Urine Bacteria (NEG/NONE) FEW H Urine Mucus (FEW,NONE) RARE Urine Hemoglobin (NEG) NEG Urine Osmolality (300 - 1000 MOSM/KG) 367 Ur Random Creatinine (mg/dL) 60.4 Ur Random Sodium (30 - 90 mmol/L) < 5 L Ur Random Potassium (mmol/L) 32.6 Fraction Sodium Excret (<1% %) Urine Glucose (N MG/DL) NEG 02/15 02/15 1323 1313 Chemistry Sodium (137 - 145 mmol/L) 129 L Potassium (3.5 - 5.1 mmol/L) 4.2 Chloride (98 - 107 mmol/L) 93 L Carbon Dioxide (22 - 30 mmol/L) 32 H Anion Gap (5 - 16) 4 L BUN (9 - 20 mg/dL) 27 H Creatinine (0.7 - 1.2 mg/dL) 0.9 Estimated GFR (>60 ml/min) > 60 BUN/Creatinine Ratio (7 - 25 %) 30.0 H Glucose (65 - 99 mg/dL) 132 H Serum Osmolality (285 - 295 MOSM/KG) 291 Calcium (8.4 - 10.2 mg/dL) 8.9 Iron (49 - 181 ug/dL) 24 L TIBC (261 - 462 ug/dL) 309 Ferritin (17.9 - 464 ng/mL) 94.4 Total Bilirubin (0.2 - 1.3 mg/dL) 0.5 AST (17 - 59 U/L) 67 H ALT (21 - 72 U/L) 46 Alkaline Phosphatase (< 127 U/L) 60 Lactate Dehydrogenase (313 - 618 U/L) 531 Troponin I (<0.11 ng/ml) < 0.01 Total Protein (6.3 - 8.2 g/dL) 5.5 L Albumin (3.5 - 5.0 g/dL) 2.9 L Globulin (1.9 - 4.2 gm/dL) 2.6 Albumin/Globulin Ratio (1.1 - 2.2 %) 1.1 Vitamin B12 (239 - 931 pg/mL) 378 Folate (2.76 - 20.0 ng/mL) > 20.0 H TSH &T3 &Free T4 Intrp (0.27 - 4.20 uIU/mL) 1.930 Coagulation PT (9.4 - 12.5 SEC) 14.4 H INR (0.90 - 1.17) 1.32 H D-Dimer High Sensitivty (0 - 243 ng/ml) 846 H Hematology CBC w Diff MAN DIFF ORDERED WBC (4.8 - 10.8 /CUMM) 8.7 RBC (4.70 - 6.10 /CUMM) 2.24 L Hgb (14.0 - 18.0 G/DL) 7.1 *L Hct (42 - 52 %) 20.9 L MCV (80.0 - 94.0 FL) 93.4 MCH (27.0 - 31.0 PG) 31.8 H MCHC (33.0 - 37.0 G/DL) 34.0 RDW (11.5 - 14.5 %) 15.1 H Plt Count (130 - 400 /CUMM) 390 MPV (7.4 - 10.4 FL) 8.0 Gran % (42.2 - 75.2 %) 75.5 H Lymphocytes % (20.5 - 51.1 %) 11.5 L Monocytes % (1.7 - 9.3 %) 12.3 H Eosinophils % (0 - 5 %) 0.3 Basophils % (0.0 - 2.0 %) 0.4 Absolute Granulocytes (1.4 - 6.5 /CUMM) 6.6 H Segmented Neutrophils (42.2 - 75.2 %) 79 H Absolute Lymphocytes (1.2 - 3.4 /CUMM) 1.0 L Lymphocytes (20.5 - 51.1 %) 12 L Monocytes (1.7 - 9.3 %) 8 Absolute Monocytes (0.10 - 0.60 /CUMM) 1.1 H Eosinophils (0 - 5.0 %) 1 Absolute Eosinophils (0.0 - 0.7 /CUMM) 0 Absolute Basophils (0.0 - 0.2 /CUMM) 0 Platelet Estimate (ADEQUATE) ADEQUATE Polychromasia 1+ Hypochromic-Microcytic 2+ Anisocytosis 1+ Retic Count (0.5 - 2.0 %) 5.32 H Haptoglobin Pending Urines Urine Color Cancelled Urine Clarity Cancelled Urine pH Cancelled Ur Specific [place] Cancelled Urine Protein Cancelled Urine Ketones Cancelled Urine Nitrite Cancelled Urine Bilirubin Cancelled Urine Urobilinogen Cancelled Ur Leukocyte Esterase Cancelled Ur Microscopic Cancelled Urine Hemoglobin Cancelled Urine Glucose Cancelled Imaging/Other Studies: US Lower extremity 02/15/2018: Respiratory variation, normal compression and augmented flow are noted throughout the lower extremity. The visualized common femoral vein, superficial femoral vein, profunda femoral vein, popliteal vein and midcalf peroneal and posterior tibial venous segments show no evidence of deep venous thrombosis. There is no Lawler's cyst. There are 2 adjacent complex fluid collections in the right groin, right thigh. There is bruising over this area. May be a hematoma therefore. The collection is nonvascular with low-level echoes. There is a collection measuring 12.6 x 4.5 x 6.7 cm. There is a collection measuring 8.3 x 2.1 x 2.7 cm. IMPRESSION: 1. No evidence of deep venous thrombosis involving the lower extremity. 2. There are 2 complex fluid collections in the right groin which may be hematomas. Abdomen/Pelvis CT 02/15/2018: LUNG BASES: No suspicious abnormality in the visualized lower chest LIVER, GALLBLADDER, AND BILIARY TREE: No suspicious focal liver lesion. There is no opaque gallstone. There is no biliary dilation. PANCREAS: No suspicious abnormality SPLEEN: Within normal limits ADRENAL GLANDS: Normal KIDNEYS AND URETERS: There is a 0.5 cm nonobstructing lower pole left renal calculus. No significant dilation of the intrarenal collecting system on either side. There is a partially exophytic 1.7 cm intermediate density lesion arising from the posterior mid right kidney. This does not have the CT features of a simple cyst. There is a 2 mm nonobstructing upper pole right renal calculus. BLADDER: The bladder is distended. No focal abnormality. GASTROINTESTINAL TRACT: No localized colonic wall thickening. No small bowel dilation. The stomach is not well distended. ABDOMINAL WALL: There are nodular densities in the superficial fat likely related to injections. The lowest images suggest a hematoma in the medial right thigh. This is not completely included. This could represent acute or subacute hemorrhage. Stranding extends towards the inguinal canal. There is stranding in the ventral soft tissues at the right groin. LYMPH NODES: There are no enlarged abdominal or pelvic lymph nodes. There is no free intraperitoneal fluid. VASCULAR: There is no abdominal aortic aneurysm. There is no retroperitoneal hemorrhage. The psoas muscles are fairly symmetric. There is an asymmetric enlargement of the right iliac is. This may represent a hematoma. There may be some enlargement of the dorsal soft tissues on the right in the lumbar region. This extends into the lower thorax. There is some asymmetric enlargement of the dorsal soft tissues of the lumbosacral junction on the left. There is an IVC filter. PELVIC VISCERA: Coarse calcifications. No suspicious mass OSSEOUS STRUCTURES: There is ankylosis of the SI joints. No acute fracture demonstrated. IMPRESSION: Hemorrhage incompletely included in the right proximal thigh. I suspect hemorrhage involving the right iliacus and bilateral dorsal paraspinal muscles. No retroperitoneal hemorrhage. There is an IVC filter. The hemorrhages do not appear contiguous. Correlate with coagulopathy Assessment/Plan Assessment: Mr. Hutson is a 62 year old male with history of alcohol use disorder, bipolar disorder, schizophrenia, traumatic brain injury, seizures/epilepsy, DVT currently on lovenox s/p IVC filter and previous rivaroxaban/dabigatran failure, subdural hematoma requiring craniotomy who presented to the [facility] for anemia and right thigh bruising. He was noted to have a right thigh hematoma. Hemoglobin on admission was 7.1 with hematocrit of 20.9. He was given 2 units of packed RBC. Anemia is likely secondary to blood loss in the form of hematoma to the right thigh. He has been getting 150 mg of enoxaparin twice a day. His weight is around 80 kg. He has been stable this weight for a while now. It is unclear on the dosing of his enoxaparin currently. Standard dosing is 1.5 mg/kilogram daily or 1 mg/kilogram twice daily. Given the anemia, enoxaparin should be held off for now. This may be restarted after hemoglobin is stable. It would be reasonable to reach out to Dr. Fuentes's office to discuss the dosing of the enoxaparin. once hemoglobin stable, he may be restarted on enoxaparin at 1.5 mg/ kilogram daily or 1 mg/kilogram twice daily. he needs to be monitor closely for bleeding. He may need anti-Xa evaluation (4 hours after dosing) during therapy. He will follow up with Dr. Fuentes after discharge. Recommendations: Anemia secondary to hematoma: -transfusion as needed Recurrent DVT: -contact Dr. Fuentes's office regarding dosing of enoxaparin -restart anticoagulation once H/H is stable (over next 24 hours) -enoxparin 1.5 mg/kg daily (120 mg daily) or 1 mg/kg twice daily (80 mg twice daily) -follow up with Dr. Fuentes on discharge Problem List: 1. Acute blood loss anemia 2. Hematoma 3. DVT (deep venous thrombosis) Other Findings/Comments: Please call [phone] with any questions or concerns. Consult Acknowledgment - Thank you for your consult request.
[2018-02-16 08:46] LABS: ABSOLUTE BASOPHIL COUNT 0 /CUMM (0.0-0.2); ABSOLUTE EOSINOPHIL COUNT 0.1 /CUMM (0.0-0.7); ABSOLUTE GRANULOCYTE CT 4.5 /CUMM (1.4-6.5); ABSOLUTE MONOCYTE COUNT 0.8 /CUMM (0.10-0.60); BASOPHIL % 0.5 % (0.0-2.0); EOSINOPHIL % 1.1 % (0-5); GRANULOCYTE % 70.3 % (42.2-75.2); HEMATOCRIT 23.9 % (42-52); MEAN CORPUSCULAR HGB 30.9 PG (27.0-31.0); MEAN CORPUSCULAR HGB CONC 33.2 G/DL (33.0-37.0); MEAN CORPUSCULAR VOLUME 93.1 FL (80.0-94.0); MEAN PLATELET VOLUME 8.7 FL (7.4-10.4); PLATELET COUNT 323 /CUMM (130-400); RBC DISTRIBUTION WIDTH 16.1 % (11.5-14.5); RED BLOOD CELL CT 2.56 /CUMM (4.70-6.10); WHITE BLOOD CELL COUNT 6.4 /CUMM (4.8-10.8)
--- NOTE | 2018-02-16 11:02 | PN- Att Addend ---
Attending Addendum Attending Brief Note Patient feeling a little better today he got his transfusions. Vital signs are stable afebrile. No major changes in physical. CT scan results noted. Hematology saw the patient and recommendations appreciated. Will hold Lovenox until his H&H is stable check with Dr. 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 Monitor H&H. PT eval and also orthopedic note that the patient is in the hospital. 24 TOTALS 02/16 0000 02/15 0000 Intake Total 1850 Output Total 600 Balance 1250 Intake, Blood 375 Product Intake, IV 1075 Intake, Oral 400 Output, Urine 600 Patient 167 lb Weight Weight Bed scale Measurement Method Current Medications Sig/María Start time Last Medication Dose Route Stop Time Status Admin Acetaminophen 650 MG Q6-PRN PRN 02/15 204 AC PO Cyanocobalamin 1,000 MCG DAILY 02/15 1837 AC 02/16 PO 0847 Divalproex Sodium 250 MG TID 02/15 2100 AC 02/16 PO 0847 Duloxetine HCl 40 MG 1700 02/16 1700 AC PO Ferrous Sulfate 325 MG DAILY 02/16 0900 AC 02/16 PO 0847 Folic Acid 1 MG DAILY 02/15 1832 AC 02/16 PO 0847 Lactated Ringer's 1,000 ML ONCE ONE 02/16 0730 AC 02/16 IV 02/16 1729 0800 Levetiracetam 500 MG BID 02/15 2100 AC 02/16 PO 0847 Melatonin 3 MG QPM 02/15 2100 AC 02/15 PO 2116 Multivitamins 1 TAB DAILY 02/16 0900 AC 02/16 PO 0847 Olanzapine 2.5 MG DAILY 02/16 0900 AC 02/16 PO 0847 Olanzapine 7.5 MG QPM 02/15 2100 AC 02/15 PO 2116 Oxycodone HCl 5 MG Q6P PRN 02/15 2045 AC 02/16 PO 0623 Sodium Chloride 1,000 ML Q13H 02/15 2145 DC 02/15 IV 02/16 1044 2202 Sodium Chloride 1,000 ML ONCE ONE 02/15 1945 DC 02/15 IV 02/16 0904 2054 Sodium Chloride 1,000 ML BOLUS ONE 02/15 1730 DC 02/15 IV 02/15 1929 1845 Tamsulosin HCl 0.4 MG DAILY 02/15 1835 02/16 PO 0847 Tramadol HCl 50 MG Q6P PRN 02/15 1845 02/15 PO 2350 Laboratory Tests 02/16/18 1000: Anion Gap 7, Estimated GFR > 60, BUN/Creatinine Ratio 26.3 H, Creatine Kinase 1035 H 02/16/18 0636: CBC w Diff NO MAN DIFF REQ, RBC 2.56 L, MCV 93.1, MCH 30.9, MCHC 33.2, RDW 16.1 H, MPV 8.7, Gran % 70.3, Lymphocytes % 15.0 L, Monocytes % 13.1 H, Eosinophils % 1.1, Basophils % 0.5, Absolute Granulocytes 4.5, Absolute Lymphocytes 1.0 L, Absolute Monocytes 0.8 H, Absolute Eosinophils 0.1, Absolute Basophils 0 02/15/18 2300: Sodium Cancelled, Potassium Cancelled, Chloride Cancelled, Carbon Dioxide Cancelled, Anion Gap Cancelled, BUN Cancelled, Creatinine Cancelled, BUN/ Creatinine Ratio Cancelled, CBC w Diff Cancelled, WBC Cancelled, RBC Cancelled, Hgb Cancelled, Hct Cancelled, MCV Cancelled, MCH Cancelled, MCHC Cancelled, RDW Cancelled, Plt Count Cancelled, MPV Cancelled 02/15/182026: Anion Gap 6, Estimated GFR > 60, BUN/Creatinine Ratio 30.0 H, Creatine Kinase 1269 H, CBC w Diff NO MAN DIFF REQ, RBC 2.45 L, MCV 94.0, MCH 30.9, MCHC 32.9 L, RDW 15.6 H, MPV 8.8, Gran % 70.3, Lymphocytes % 14.9 L, Monocytes % 13.8 H , Eosinophils % 0.8, Basophils % 0.2, Absolute Granulocytes 5.5, Absolute Lymphocytes 1.2, Absolute Monocytes 1.1 H, Absolute Eosinophils 0.1, Absolute Basophils 0 02/15/182020: Urine Color YEL, Urine Clarity CLEAR, Urine pH 6.5, Ur Specific [place] 1.010, Urine Protein NEG, Urine Ketones NEG, Urine Nitrite NEG, Urine Bilirubin NEG, Urine Urobilinogen 1.0, Ur Leukocyte Esterase TRACE H, Ur Microscopic SEDIMENT EXAMINED, Urine RBC RARE, Urine WBC 1-3 H, Ur Epithelial Cells FEW, Urine Bacteria FEW H, Urine Mucus RARE, Urine Hemoglobin NEG, Urine Glucose NEG 02/15/182020: Urine Osmolality 367, Ur Random Creatinine 60.4, Ur Random Sodium < 5 L, Ur Random Potassium 32.6, Fraction Sodium Excret 02/15/18 1323: Anion Gap 4 L, Estimated GFR > 60, BUN/Creatinine Ratio 30.0 H, Glucose 132 H , Serum Osmolality 291, Calcium 8.9, Iron 24 L, TIBC 309, Ferritin 94.4, Total Bilirubin 0.5, AST 67 H, ALT 46, Alkaline Phosphatase 60, Lactate Dehydrogenase 531, Troponin I < 0.01, Total Protein 5.5 L, Albumin 2.9 L, Globulin 2.6, Albumin/Globulin Ratio 1.1, Vitamin B12 378, Folate > 20.0 H, TSH &T3 &Free T4 Intrp 1.930, PT 14.4 H, INR 1.32 H, D-Dimer High Sensitivty 846 H, CBC w Diff MAN DIFF ORDERED, RBC 2.24 L, MCV 93.4, MCH 31.8 H, MCHC 34.0, RDW 15.1 H, MPV 8.0, Gran % 75.5 H, Lymphocytes % 11.5 L, Monocytes % 12.3 H, Eosinophils % 0.3, Basophils % 0.4, Absolute Granulocytes 6.6 H, Segmented Neutrophils 79 H, Absolute Lymphocytes 1.0 L, Lymphocytes 12 L, Monocytes 8, Absolute Monocytes 1.1 H, Eosinophils 1, Absolute Eosinophils 0, Absolute Basophils 0, Platelet Estimate ADEQUATE, Polychromasia 1+, Hypochromic-Microcytic 2+, Anisocytosis 1+, Retic Count 5.32 H 02/15/18 1313: Haptoglobin Pending, Urine Color Cancelled, Urine Clarity Cancelled, Urine pH Cancelled, Ur Specific [place] Cancelled, Urine Protein Cancelled, Urine Ketones Cancelled, Urine Nitrite Cancelled, Urine Bilirubin Cancelled, Urine Urobilinogen Cancelled, Ur Leukocyte Esterase Cancelled, Ur Microscopic Cancelled, Urine Hemoglobin Cancelled, Urine Glucose Cancelled Vital Signs Date Time Temp Pulse Resp B/P B/P Pulse O2 O2 Flow FiO2 Mean Ox Delivery Rate 02/16 0847 98.0 110 20 106/66 02/16 0614 98.0 110 20 106 96 Room Air 02/158 97.9 116 20 120/60 96 06/28 2117 110 120/60 02/15 1830 98.6 104 18 122/70 96 Room Air 02/15 1724 98.3 115 16 114/65 96 Room Air 02/15 1658 98.4 114 18 119/63 96 Room Air 02/15 1445 98.0 80 18 113/66 96 Room Air 02/15 1355 99.2 88 20 125/60 100 Room Air 02/15 1332 98 Room Air 02/15 1310 99.0 109 16 165/94 98 Room Air
[2018-02-16 15:11] VITALS: BP 110/70
[2018-02-16] MEDS ORDERED: LOVENOX80 MG/0.1 SC (15:24)
[2018-02-16 22:01] VITALS: BP 128/60
[2018-02-17 06:17] VITALS: BP 116/68
--- NOTE | 2018-02-17 08:31 | PN- Housestaff ---
Luis DOMINGO,Pauly 02/17/18829: Subjective Follow-up For: Acute blood loss anemia s/p pRBC transfusions Left thigh hematoma Subjective: Patient was seen and examined today. Patient reports sharp shooting left leg pain with movement. Patient reports that it is tolerable at rest and rates it at 2 out of 10. Patient denies any other complaints at this time. Denies fever , chills, nausea/vomiting, shortness of breath, chest pain, lightheadedness, dizziness, abdominal pain. No acute events overnight. Review of Systems Constitutional: Reports: see HPI. Objective Last 24 Hrs of Vital Signs/I&O Vital Signs Date Time Temp Pulse Resp B/P B/P Pulse O2 O2 Flow FiO2 Mean Ox Delivery Rate 02/17 0617 98.8 94 18 116/68 96 Room Air 02/16 2201 98.8 102 20 128/60 95 Room Air 02/16 1511 98.2 83 20 110/70 95 Intake & Output 02/17 1600 02/17 0800 02/17 0000 Intake Total 300 500 Output Total 1550 800 Balance -1250 -300 Intake, Blood 150 Product Intake, IV 50 Intake, Oral 300 300 Output, Urine 1550 800 Patient 178 lb Weight Physical Exam General Appearance: Alert, Cooperative, No Acute Distress HEENT: Atraumatic, Mucous Membr. moist/pink Cardiovascular: Regular Rate, Normal S1, Normal S2, No Murmurs Lungs: Clear to Auscultation, Normal Air Movement Abdomen: Normal Bowel Sounds, Soft, No Tenderness Neurological: Normal Speech, Normal Tone, Sensation Intact, Cranial Nerves 3-12 NL, strength decreased in the left leg due to pain, remainder of extremities strength 5/5 Extremities: large area of ecchymosis at left thigh Current Medications: Current Medications Sig/María Start time Last Medication Dose Route Stop Time Status Admin Acetaminophen 650 MG Q6-PRN PRN 02/15 204 AC PO Cyanocobalamin 1,000 MCG DAILY 02/15 183 AC 02/17 PO 08 Divalproex Sodium 250 MG TID 02/15 2100 AC 02/17 PO 1313 Duloxetine HCl 40 MG 1700 02/16 1700 AC 02/16 PO 1655 Ferrous Sulfate 325 MG DAILY 02/16 0900 AC 02/17 PO 0827 Folic Acid 1 MG DAILY 02/15 183 AC 02/17 PO 08 Lactated Ringer's 1,000 ML ONCE ONE 02/16 0730 DC 02/16 IV 02/16 1729 0800 Levetiracetam 500 MG BID 02/15 2100 AC 02/17 PO 826 Melatonin 3 MG QPM 02/15 2100 AC 02/16 PO 2003 Multivitamins 1 TAB DAILY 02/16 0900 AC 02/17 PO 826 Olanzapine 2.5 MG DAILY 02/16 0900 AC 02/17 PO 08 Olanzapine 7.5 MG QPM 02/15 2100 AC 02/16 PO 2004 Oxycodone HCl 5 MG Q6P PRN 02/15 2045 AC 02/16 PO 0623 Patient Medication 1 ED ONE ONE 02/16 1345 DC 02/16 Teaching ED 02/16 1346 1407 Tamsulosin HCl 0.4 MG DAILY 02/15 1835 AC 02/17 PO 08 Tramadol HCl 50 MG Q6P PRN 02/15 1845 AC 02/16 PO 1521 Last 24 Hrs of Lab/[place] Results Last 24 Hrs of Labs/Mics: Laboratory Tests 02/17/18 0657: Anion Gap 7, Estimated GFR > 60, BUN/Creatinine Ratio 21.3, CBC w Diff NO MAN DIFF REQ, RBC 2.88 L, MCV 92.4, MCH 30.4, MCHC 32.9 L, RDW 16.9 H, MPV 8.4, Gran % 70.5, Lymphocytes % 16.0 L, Monocytes % 11.1 H, Eosinophils % 2.2, Basophils % 0.2, Absolute Granulocytes 4.6, Absolute Lymphocytes 1.0 L, Absolute Monocytes 0.7 H, Absolute Eosinophils 0.1, Absolute Basophils 0 Assessment/Plan Assessment: 62 year old male with past medical history of alcohol use disorder, bipolar disorder, schizophrenia, seizures/epilepsy, 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 Fuentes , traumatic brain injury and h/o subdural hematoma requiring craniotomy and IVC filter placement perioperatively, was brought in by ambulance from [facility] with right lower extremity bruising and a decreased hematocrit and hemoglobin. He is guiaic negative, and receives lovenox 150mg sc bid according to the W10, which is the likely the cause of his bleeding. Anemia: acute blood loss * On admission: Hemoglobin 7.1 now up to 8.7 s/p 2 units transfusion * Called [facility] [phone], last note 07/2017 prescribed 150mg lovenox DAILY, addressed to [facility] but they administered TWICE DAILY * Repeat CK decreased to 1035 from 1269 Hyponatremia: hypovolemic from acute blood loss - RESOLVED after hydration and transfusions Serum sodium 129, last 141 only 4 days prior to admission, 138 today Psych,Seizures, h/o TBI: Continue keppra, zyprexa, cymbalta, and depakote If sodium fails to improve with fluid resuscitation, consider these medications as contributors Weight loss: Nutrition consult for dietary supplementation Activity: Patient is currently an assist of 1. Evaluated by physical therapy. Requires STR. Regular diet DVT ppx-mechanical ALPs, lovenox on hold Full code Problem List: 1. Acute blood loss anemia 2. Hematoma Pain Ratin Pain Location: left leg Pain Goal: Pain 4 or less Pain Plan: tylenol blaine Tomorrow's Labs & Rationales: cbc- anemia Juno Batista MD 02/17/18 1237: Attending MD Review Statement Attending Statement Attending MD Statement: examined this patient, discuss w/resident/PA/ARCHITECTURE ANALYST, agreed w/resident/PA/ARCHITECTURE ANALYST, reviewed EMR data (avail), amended to note Attending Assessment/Plan: Mr. Ellison was interviewed and examined. His EMR was reviewed. He still notes some pain from his hematoma but states that it is controlled with his current analgesics. He has no other complaints. He is afebrile with stable vital signs. Heart, lung, and abdominal exams are benign. H&H today is 8.7/26.5 with normal WBC and platelets. Chemistries are within normal limits. We are continuing to monitor his H&H. We are withholding his Lovenox. We are continuing his other maintenance medications. Should his H&H remained stable we anticipate discharge in the a.m.
[2018-02-17 08:54] LABS: ABSOLUTE BASOPHIL COUNT 0 /CUMM (0.0-0.2); ABSOLUTE EOSINOPHIL COUNT 0.1 /CUMM (0.0-0.7); ABSOLUTE GRANULOCYTE CT 4.6 /CUMM (1.4-6.5); ABSOLUTE MONOCYTE COUNT 0.7 /CUMM (0.10-0.60); BASOPHIL % 0.2 % (0.0-2.0); EOSINOPHIL % 2.2 % (0-5); GRANULOCYTE % 70.5 % (42.2-75.2); HEMATOCRIT 26.5 % (42-52); MEAN CORPUSCULAR HGB 30.4 PG (27.0-31.0); MEAN CORPUSCULAR HGB CONC 32.9 G/DL (33.0-37.0); MEAN CORPUSCULAR VOLUME 92.4 FL (80.0-94.0); MEAN PLATELET VOLUME 8.4 FL (7.4-10.4); PLATELET COUNT 381 /CUMM (130-400); RBC DISTRIBUTION WIDTH 16.9 % (11.5-14.5); RED BLOOD CELL CT 2.88 /CUMM (4.70-6.10); WHITE BLOOD CELL COUNT 6.5 /CUMM (4.8-10.8)
[2018-02-17 14:24] VITALS: BP 122/58
[2018-02-17 21:38] VITALS: BP 120/60
[2018-02-18 06:20] VITALS: BP 122/66
--- NOTE | 2018-02-18 08:15 | PN- Housestaff ---
Arturo Madrigal 02/18/18813: Subjective Follow-up For: acute blood loss s/p transfusion L Thigh hematoma Subjective: Pt seen and examined at bedside. Pt pleasant, conversational; denies any complaints overnight. States that pain in leg is improving and is excited to ambulate again. Denies fevers/chills/night sweats/chest pain/SOB/abdominal pain/ dizziness. No acute events overnight Review of Systems Constitutional: Reports: see HPI. Objective Last 24 Hrs of Vital Signs/I&O Vital Signs Date Time Temp Pulse Resp B/P B/P Pulse O2 O2 Flow FiO2 Mean Ox Delivery Rate 02/18 08 90 112/62 02/18 0620 98.4 79 18 122/66 96 Room Air 02/17 2138 98.6 112 18 120/60 96 02/17 1424 97.8 100 20 122/58 97 Intake & Output 02/18 1600 02/18 0800 02/18 0000 Intake Total 800 300 Output Total 500 525 Balance 300 -225 Intake, Oral 800 300 Output, Urine 500 525 Physical Exam General Appearance: Alert, Cooperative, No Acute Distress Skin: ecchymosis to R thigh extending proximally to inguinal canal HEENT: PERRLA, left eye fixed Cardiovascular: Normal S1, Normal S2, No Murmurs Lungs: Clear to Auscultation, Normal Air Movement Abdomen: Soft, No Tenderness, No Masses Neurological: Sensation Intact Extremities: Normal Pulses, mild tenderness to R thigh, ecchymosis to R thigh Current Medications: Current Medications Sig/María Start time Last Medication Dose Route Stop Time Status Admin Acetaminophen 650 MG Q6-PRN PRN 02/15 2045 AC PO Cyanocobalamin 1,000 MCG DAILY 02/15 1837 AC 02/18 PO 08 Divalproex Sodium 250 MG TID 02/15 2100 AC 02/18 PO 08 Duloxetine HCl 40 MG 1700 02/16 1700 AC 02/17 PO 170 Ferrous Sulfate 325 MG DAILY 02/16 09 AC 02/18 PO 08 Folic Acid 1 MG DAILY 02/15 183 AC 02/18 PO 821 Levetiracetam 500 MG BID 02/15 2100 AC 02/18 PO 821 Melatonin 3 MG QPM 02/15 2100 AC 02/17 PO 2012 Multivitamins 1 TAB DAILY 02/16 09 AC 02/18 PO 08 Olanzapine 2.5 MG DAILY 02/16 0900 AC 02/18 PO 08 Olanzapine 7.5 MG QPM 02/15 2100 AC 02/17 PO 2012 Oxycodone HCl 5 MG Q6P PRN 02/15 2045 AC 02/17 PO 215 Tamsulosin HCl 0.4 MG DAILY 02/15 1835 AC 02/18 PO 08 Tramadol HCl 50 MG Q6P PRN 02/15 1845 AC 02/17 PO 2012 Assessment/Plan Assessment: 62 year old male with past medical history of alcohol use disorder, bipolar disorder, schizophrenia, seizures/epilepsy, 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 Fuentes failed pradaxa, traumatic brain injury and h/o subdural hematoma requiring craniotomy and IVC filter placement perioperatively, BIBA from [facility] with RLE bruising and a decreased hematocrit and hemoglobin. Guaic negative, was recieving lovenox 150mg BID according to W10 Anemia: acute blood loss -On admission: Hemoglobin 7.1, up to 8.7 on 02/17; awaiting lab results today. S /p 2 units transfused. -As per previous note: Called [facility] [phone], last note 07/2017 prescribed 150mg lovenox DAILY, addressed to [facility] but they administered TWICE DAILY -CK 1035--> 696 on 02/17 Hyponatremia: hypovolemic from acute blood loss - RESOLVED Psych,Seizures, h/o TBI: Continue keppra, zyprexa, cymbalta, and depakote Weight loss: Nutrition consult for dietary supplementation Activity: Patient is currently an assist of 1. Evaluated by physical therapy. Requires STR. Regular diet DVT ppx-mechanical ALPs, lovenox on hold, will reconsider when H/H stable Full code Problem List: 1. Acute blood loss anemia Pain Ratin Pain Location: R thigh Pain Goal: Pain 4 or less Pain Plan: PRN Tomorrow's Labs & Rationales: H/H Juno Batista MD 02/18/18 1237: Attending MD Review Statement Attending Statement Attending MD Statement: examined this patient, discuss w/resident/PA/AERONAUTICAL DESIGN ENGINEER, agreed w/resident/PA/AERONAUTICAL DESIGN ENGINEER, reviewed EMR data (avail), discussed with case mgmt, amended to note Attending Assessment/Plan: Mr. Hutson was interviewed and examined. His EMR was reviewed. Discomfort at the site of his hematoma is decreasing. He has no other complaints. He is afebrile. Heart and respiratory rates are satisfactory and stable as is his blood pressure. He is in no acute distress. His physical exam is unchanged and benign. Hematocrit from 0 02/17 is 26.5. Follow-up study at 1145 hrs. today is pending. His chemistries and renal function are all normal. At this time Mr. Hutson is stable for discharge. His CMR has been reviewed and signed. A corrected Lovenox dose has been provided. He will follow-up with Dr. 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 In addition a transition visit will be arranged with Dr. Deuce Goldman.
--- NOTE | 2018-02-18 08:26 | Patient Discharge Instructions ---
Discharge Instructions General Discharge Information Special Instructions: - Please follow up with Dr. Gina mejia/ your [facility] care plan within 1-2 weeks of discharge. - Please follow up with your primary care physician within 1-2 weeks of discharge. Inform your primary care physician of this admission to [facility]. - Continue your current medications per discharge instructions. - Please watch for these problems: Fever, Chills, Nausea, Vomiting, Shortness of Breath, Productive Cough, Chest Pain/Discomfort, Abdominal Pain, Active Bleeding or Bloody urine/stool. Diet Continue normal diet: Yes Activity Full Activity/No Limits: Yes Acute Coronary Syndrome Inclusion Criteria At DC or during hospital stay patient has or had the following: ACS DIAGNOSIS No Discharge Core Measures Meds if any: Prescribed or Continued at Discharge Meds if any: NOT Prescribed or Continued at Discharge Congestive Heart Failure Inclusion Criteria At DC or during hospital stay patient has or had the following: CHF DIAGNOSIS No Discharge Core Measures Meds if any: Prescribed or Continued at Discharge Meds if any: NOT Prescribed or Continued at Discharge Cerebrovascular accident Inclusion Criteria At DC or during hospital stay patient has or had the following: CVA/TIA Diagnosis No Discharge Core Measures Meds if any: Prescribed or Continued at Discharge Meds if any: NOT Prescribed or Continued at Discharge Venous thromboembolism Inclusion Criteria VTE Diagnosis No VTE Type NONE VTE Confirmed by (Test) NONE Discharge Core Measures - Per Current guidelines, there needs to be overlap - treatment for the first 5 days of Warfarin therapy. - If discharged on Warfarin prior to 5 days of - overlap therapy, the patient will need to be - assessed for post discharge needs including - *Post discharge parental anticoagulation - *Warfarin and/or parental anticoagulation education - *Follow up date to check INR post discharge At least 5 days overlap therapy as Inpatient No Meds if any: Prescribed or Continued at Discharge Note: Overlap Therapy is Warfarin and Anticoagulant Meds if any: NOT Prescribed or Continued at Discharge
--- NOTE | 2018-02-18 12:21 | Discharge Summary ---
Visit Information Visit Dates Admission Date: 02/15/18 Discharge Date: 02/19/2018 Hospital Course Course Attending Physician: Deuce Chery MD Primary Care Physician: Vik DOMINGO,[facility]uce [facility] Course: Mr. Hutson is a 62 year old male with past medical history of alcohol use disorder, bipolar disorder, schizophrenia, traumatic brain injury, seizures/ epilepsy, DVT currently on lovenox with reported history of pradaxa failure and IVC filter placement, and fall with subdural hematoma requiring craniotomy was brought in by ambulance from [place] with right lower extremity bruising and a decreased hematocrit and hemoglobin. He is guiaic negative, and receives lovenox 150mg sc bid according to the W10, although his documented weight is 77kg. 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 Fuentes ([facility]). The patient has been in his usual state of health except for over the past month he has had significant decline in his weight and oral intake, and has lost 19 pounds, currently on meal protein supplementation at [place]. He was complaining of right hip and back pain on 01/19 and was evaluated by orthopedics. They started tramadol because of his history of falls and subdural hematoma to avoid narcotics. X-rays were performed at that time and were reportedly all negative. Three days ago he developed he complained of significant pain of the right hip and stopped ambulating. He was re-evaluated by orthopedics yesterday and significant ecchymosis to the posterior right thigh was noted and they recommended continuing tramadol and icing the leg. There was no history of trauma. He had labs checked at that time and was sent to [facility] for anemia, hemoglobin of 7. He is complaining of significant pain in the right thigh, throbbing 3/10 at rest, that becomes severe with palpation and ambulation. He has bruising along the entirety of the posterior-medial right thigh worsening proximally to the inguinal canal, with additional bruising across his lower abdomen and right axilla. On review of systems, he has been having poor PO intake, weight loss, weakness, malaise, and feeling lightheaded without any chest pain, dyspnea, hematuria, melena, hematochezia or hematemesis. He has a family history of DVT. He is a current smoker 1/4ppd and allergic to aspirin, reportedly with anxiety, palpitations, and dyspnea. In the ED, he was transfused one unit of blood and underwent negative ultrasound for DVT, x-ray negative for fracture in the right leg, and CT abdomen negative for retroperitoneal hemorrhage. 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 [place]ded [place] from [id number] on 02/17. Patient's hyponatremia, likely secondary to hypovolemic from acute blood loss, has been resolved over the hospital course, and patient was continue all home medications for psych issues as mentioned above. Patient's constipation was taken care with bowel regimen. Patient was restarted on anticoagulation on 02/18, with the dose of Lovenox 1 mg/ KG twice daily (80 mg twice daily subcutaneous administration), with out any complication was new onset acute blood loss anemia. Patient was then discharged back to [place] for further outpatient care and follow-up with Dr. Fuentes DVT PPX Lovenox + ALPS Regular Diet FUll Code Allergies: Coded Allergies: aspirin (HEART PALPITATIONS 08/04/17) Pertinent Lab Results: SERVICE DATE: 02/15/18 EXAM TYPE: US - US-DUPLEX VENOUS EXTREM UNI IMPRESSION: 1. No evidence of deep venous thrombosis involving the lower extremity. 2. There are 2 complex fluid collections in the right groin which may be hematomas. SERVICE DATE: 02/15/18 EXAM TYPE: RAD - XRY-FEMUR, 2 VIEWS RIGHT IMPRESSION: Unremarkable radiographs of the right femur. SERVICE DATE: 02/15/18 EXAM TYPE: CAT - CT ABD & PELVIS W/O IV CONTRAS IMPRESSION: Hemorrhage incompletely included in the right proximal thigh. I suspect hemorrhage involving the right iliacus and bilateral dorsal paraspinal muscles. No retroperitoneal hemorrhage. There is an IVC filter The hemorrhages do not appear contiguous. 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 Gina mejia/ your lovenox care plan within 1-2 weeks of discharge. - Please follow up with your primary care physician within 1-2 weeks of discharge. Inform your primary care physician of this admission to [facility]. - Continue your current medications per discharge instructions. - Please watch for these problems: Fever, Chills, Nausea, Vomiting, Shortness of Breath, Productive Cough, Chest Pain/Discomfort, Abdominal Pain, Active Bleeding or Bloody urine/stool. Medications at Discharge Discharge Medications: Stop taking the following medications: Enoxaparin Sodium (Lovenox) 150 MG/ML SYRINGE Inject into fatty tissue TWICE DAILY Continue taking these medications: Folic Acid (Folic Acid) 1 MG TABLET 1 Tablet ORAL DAILY Comments: Last Taken: 02/19/18 Time: 8:29 AM Levetiracetam (Keppra) 500 MG TABLET 1 Tablet ORAL TWICE DAILY Comments: Last Taken: 02/19/18 Time: 8:29 AM Mineral Oil/Petrolatum,White (Artificial Tears Eye Ointment) 15 %-83 % OINT...G. 1 Application In the eye Every night Comments: NOT GIVEN IN HOSPITAL Melatonin (Melatonin) 3 MG TABLET 1 Tablet ORAL Every night Comments: Last Taken: 02/18/18 Time: 8:33 PM Multivitamin With Minerals (One Daily Complete) 1 EACH TABLET 1 Tablet ORAL DAILY Comments: Last Taken: 02/19/18 Time: 8:28 AM Olanzapine (Olanzapine) 7.5 MG TABLET 1 Tablet ORAL Every night Comments: Last Taken: 02/18/18 Time: 8:33 PM Tamsulosin HCl (Flomax) 0.4 MG CAP.ER.24H 1 Capsule ORAL DAILY Comments: Last Taken: 02/19/18 Time: 8:32 AM Olanzapine (Zyprexa) 2.5 MG TABLET 1 Tablet ORAL DAILY Comments: Last Taken: 02/19/18 Time: 8:28 AM Divalproex Sodium (Depakote) 250 MG TABLET.DR 1 Tablet ORAL THREE TIMES DAILY Comments: Last Taken: 02/19/18 Time: 1:30 PM Tramadol HCl (Tramadol HCl) 50 MG TABLET 1 Tablet ORAL EVERY SIX HOURS NEEDED as needed for PAIN Comments: NOT TAKEN IN HOSPITAL Duloxetine HCl (Duloxetine HCl) 40 MG CAPSULE.DR 1 Capsule ORAL 5 PM Comments: Last Taken: 02/18/18 Time: 5:15 PM Start taking the following new medications: Enoxaparin Sodium (Lovenox) 80 MG/0.8 ML SYRINGE 1 Inj Inject into fatty tissue TWICE DAILY Qty = 60 No Refills Comments: NOT YET GIVEN IN HOSPITAL Copies To: Deuce Chery MD
[2018-02-18 14:28] VITALS: BP 110/60
[2018-02-18 15:44] LABS: ABSOLUTE BASOPHIL COUNT 0 /CUMM (0.0-0.2); ABSOLUTE EOSINOPHIL COUNT 0.1 /CUMM (0.0-0.7); ABSOLUTE GRANULOCYTE CT 3.4 /CUMM (1.4-6.5); ABSOLUTE LYMPH COUNT 0.9 /CUMM (1.2-3.4); ABSOLUTE MONOCYTE COUNT 0.7 /CUMM (0.10-0.60); BASOPHIL % 0.4 % (0.0-2.0); EOSINOPHIL % 2.6 % (0-5); GRANULOCYTE % 65.5 % (42.2-75.2); HEMATOCRIT 26.1 % (42-52); MEAN CORPUSCULAR HGB 30.5 PG (27.0-31.0); MEAN CORPUSCULAR HGB CONC 33.2 G/DL (33.0-37.0); MEAN CORPUSCULAR VOLUME 91.9 FL (80.0-94.0); MEAN PLATELET VOLUME 8.3 FL (7.4-10.4); PLATELET COUNT 391 /CUMM (130-400); RBC DISTRIBUTION WIDTH 16.2 % (11.5-14.5); RED BLOOD CELL CT 2.84 /CUMM (4.70-6.10); WHITE BLOOD CELL COUNT 5.2 /CUMM (4.8-10.8)
[2018-02-18 22:02] VITALS: BP 120/70
[2018-02-19 06:49] VITALS: BP 102/60
--- NOTE | 2018-02-19 07:50 | PN- Housestaff ---
Subjective Follow-up For: Acute blood loss status post transfusion; right thigh ecchymosis Subjective: Patient seen and examined at bedside. Patient states he still has not had a bowel movement however he is passing gas. Patient states pain in his thigh is improving. Patient states when he ambulates his right knee has some pressure. Patient states it only happens when he is moving in there is no pressure at rest. Patient states there is no new bruising. Patient denies fevers, chills, night sweats, chest pain, shortness of breath, abdominal pain, or dizziness. No acute events overnight. Review of Systems Constitutional: Reports: see HPI. Objective Last 24 Hrs of Vital Signs/I&O Vital Signs Date Time Temp Pulse Resp B/P B/P Pulse O2 O2 Flow FiO2 Mean Ox Delivery Rate 02/19 0649 97.4 84 16 102/60 96 Room Air 02/18 2202 98.0 100 20 120/70 96 02/18 1428 98.6 96 20 110/60 95 / 0822 90 112/62 Intake & Output 02/19 1600 02/19 0800 02/19 0000 Intake Total 300 800 Output Total 1200 500 Balance -900 300 Intake, Oral 300 800 Output, Urine 1200 500 Patient 174 lb Weight Weight Bed scale Measurement Method Physical Exam General Appearance: Alert, Cooperative, No Acute Distress Skin: No Rashes, No Breakdown, R thigh ecchymosis HEENT: Mucous Membr. moist/pink Cardiovascular: Regular Rate, Normal S1, Normal S2, No Murmurs Lungs: Clear to Auscultation, Normal Air Movement Abdomen: Soft, No Tenderness Neurological: L eye fixed Extremities: No Edema, Normal Pulses, mild tenderness to R knee, no effusions noted Current Medications: Current Medications Sig/María Start time Last Medication Dose Route Stop Time Status Admin Acetaminophen 650 MG Q6-PRN PRN 02/155 AC PO Cyanocobalamin 1,000 MCG DAILY 02/15 183 AC 02/18 PO 821 Divalproex Sodium 250 MG TID 02/15 2100 AC 02/18 PO 203 Docusate Sodium 100 MG DAILY NEEDED PRN 02/18 1400 AC PO Duloxetine HCl 40 MG 1700 02/16 1700 AC 02/18 PO 1715 Ferrous Sulfate 325 MG DAILY 02/16 0900 AC 02/18 PO 08 Folic Acid 1 MG DAILY 02/15 1832 AC 02/18 PO 08 Levetiracetam 500 MG BID 02/15 2100 AC 02/18 PO 2032 Melatonin 3 MG QPM 02/15 2100 AC 02/18 PO 2032 Multivitamins 1 TAB DAILY 02/16 09 AC 02/18 PO 821 Olanzapine 2.5 MG DAILY 02/16 09 AC 02/18 PO 820 Olanzapine 7.5 MG QPM 02/15 2100 AC 02/18 PO 2032 Oxycodone HCl 5 MG Q6P PRN 02/15 204 AC 02/17 PO 215 Polyethylene Glycol 17 GM DAILY 02/18 1351 AC 02/18 PO 142 Senna 187 MG AT BEDTIME 02/18 2100 AC 02/18 PO 2032 Tamsulosin HCl 0.4 MG DAILY 02/15 183 AC 02/18 PO 821 Tramadol HCl 50 MG Q6P PRN 02/15 184 AC 02/17 PO 2012 Last 24 Hrs of Lab/[facility] Results Last 24 Hrs of Labs/Mics: Laboratory Tests 02/18/18 1330: RBC 2.84 L, MCV 91.9, MCH 30.5, MCHC 33.2, RDW 16.2 H, MPV 8.3, Gran % 65.5, Lymphocytes % 18.0 L, Monocytes % 13.5 H, Eosinophils % 2.6, Basophils % 0.4, Absolute Granulocytes 3.4, Absolute Lymphocytes 0.9 L, Absolute Monocytes 0.7 H, Absolute Eosinophils 0.1, Absolute Basophils 0 Assessment/Plan Assessment: 62 year old male with past medical history of alcohol use disorder, bipolar disorder, schizophrenia, seizures/epilepsy, 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 Fuentes failed pradaxa, traumatic brain injury and h/o subdural hematoma requiring craniotomy and IVC filter placement perioperatively, BIBA from [facility] with RLE bruising and a decreased hematocrit and hemoglobin. Guaic negative, was recieving lovenox 150mg BID according to [facility] Anemia: acute blood loss -On admission: Hemoglobin 7.1, 8.7 on 02/18. S/p 2 units transfused. -As per previous note: Called [facility] [phone], last note 07/2017 prescribed 150mg lovenox DAILY, addressed to [facility] but they administered TWICE DAILY -CK 1035--> 696 on 02/17 Hyponatremia: hypovolemic from acute blood loss - RESOLVED Psych,Seizures, h/o TBI: Continue keppra, zyprexa, cymbalta, and depakote Weight loss: Nutrition consult for dietary supplementation Activity: Patient is currently an assist of 1. Evaluated by physical therapy. Requires STR. Constipation: Patient is passing flatus. Bowel regimen ordered. Will follow up. Regular diet DVT ppx-mechanical ALPs, lovenox on hold, will reconsider when H/H stable Disposition Full code Problem List: 1. Acute blood loss anemia Pain Ratin Pain Location: RLE Pain Goal: Pain 4 or less Pain Plan: PRN Tomorrow's Labs & Rationales: na
--- NOTE | 2018-02-19 11:14 | PN- Att Addend ---
Attending Addendum Attending Brief Note Patient slowly getting better. Ready to go back to the assisted and eventually took his own apartment his vital signs are stable no major changes on physical and was seen by physical therapy. His labs are stable. See the W 10 and discharge summary. Intake & Output 02/19 1600 02/19 0400 02/18 1600 02/18 0400 02/17 1600 02/17 0400 Intake Total 383 151 9260 300 610 500 Output Total 5437 810 8624 525 2975 800 Balance -900 300 -720 -225 -2365 -300 Intake, Blood 150 Product Intake, IV 10 50 Intake, Oral 308 589 4630 300 600 300 Number 1 Bowel Movements Output, Urine 7385 330 7007 525 2975 800 Patient 174 lb 178 lb Weight Weight Bed scale Measurement Method Current Medications Sig/María Start time Last Medication Dose Route Stop Time Status Admin Acetaminophen 650 MG Q6-PRN PRN 02/15 2045 AC PO Cyanocobalamin 1,000 MCG DAILY 02/15 183 AC 02/19 PO 0828 Divalproex Sodium 250 MG TID 02/15 2100 AC 02/19 PO 0828 Docusate Sodium 100 MG DAILY NEEDED PRN 02/18 1400 AC PO Duloxetine HCl 40 MG 1700 02/16 1700 AC 02/18 PO 1715 Ferrous Sulfate 325 MG DAILY 02/16 09 AC 02/19 PO 0829 Folic Acid 1 MG DAILY 02/15 183 AC 02/19 PO 0829 Levetiracetam 500 MG BID 02/15 2100 AC 02/19 PO 0829 Melatonin 3 MG QPM 02/15 2100 AC 02/18 PO 203 Multivitamins 1 TAB DAILY 02/16 09 AC 02/19 PO 0828 Olanzapine 2.5 MG DAILY 02/16 09 AC 02/19 PO 0828 Olanzapine 7.5 MG QPM 02/15 2100 AC 02/18 PO 203 Oxycodone HCl 5 MG Q6P PRN 02/15 204 AC 02/17 PO 2157 Polyethylene Glycol 17 GM DAILY 02/18 1351 AC 02/19 PO 0828 Senna 187 MG AT BEDTIME 02/18 2100 AC 02/18 PO 203 Tamsulosin HCl 0.4 MG DAILY 02/15 183 AC 02/19 PO 0832 Tramadol HCl 50 MG Q6P PRN 02/15 1845 AC 02/17 PO 2012 Laboratory Tests 02/18/18 1330: RBC 2.84 L, MCV 91.9, MCH 30.5, MCHC 33.2, RDW 16.2 H, MPV 8.3, Gran % 65.5, Lymphocytes % 18.0 L, Monocytes % 13.5 H, Eosinophils % 2.6, Basophils % 0.4, Absolute Granulocytes 3.4, Absolute Lymphocytes 0.9 L, Absolute Monocytes 0.7 H, Absolute Eosinophils 0.1, Absolute Basophils 0 02/17/18 0657: Anion Gap 7, Estimated GFR > 60, BUN/Creatinine Ratio 21.3, Creatine Kinase 696 H, CBC w Diff NO MAN DIFF REQ, RBC 2.88 L, MCV 92.4, MCH 30.4, MCHC 32.9 L, RDW 16.9 H, MPV 8.4, Gran % 70.5, Lymphocytes % 16.0 L, Monocytes % 11.1 H, Eosinophils % 2.2, Basophils % 0.2, Absolute Granulocytes 4.6, Absolute Lymphocytes 1.0 L, Absolute Monocytes 0.7 H, Absolute Eosinophils 0.1, Absolute Basophils 0 Vital Signs Date Time Temp Pulse Resp B/P B/P Pulse O2 O2 Flow FiO2 Mean Ox Delivery Rate 02/19 0832 103 102/58 /02 0800 97 Room Air 02/19 0649 97.4 84 16 102/60 96 Room Air 02/18 2202 98.0 100 20 120/70 96 07/ 1428 98.6 96 20 110/60 95
[2018-02-19 13:41] VITALS: BP 102/58
[2018-02-19 14:07] VITALS: BP 160/60
== END 2018-02-19 18:10 | DRG 812 ==
LOC: DELPENDDIS → ERH 13:00 → 2NA 15:09 → ERHI 15:09 → ENRESERV 16:06 → ENTRNSPT 18:04 → 2NA 18:05 → EDTRNSPT 18:11 → EDTRNSPTSTS 18:11 → CMPTRNSPT 18:14 → 2NA 18:20 → ENPENDDIS 02-18 14:55 → 2NA 02-19 18:10
PROVIDERS: Emergency Medicine; Internal Medicine; Preventive Medicine Public Health & General Preventive Medicine; Student in an Organized Health Care Education/Training Program
PROC: 30233N1 Transfusion of Nonautologous Red Blood Cells into Peripheral Vein, Percutaneous Approach (ICD-10-PCS; principal; 2018-02-15)
PROC: 30233N1 Transfusion of Nonautologous Red Blood Cells into Peripheral Vein, Percutaneous Approach (ICD-10-PCS; 2018-02-16)
DX: T45.511A Poisoning by anticoagulants, accidental (unintentional), initial encounter (principal); D62 Acute posthemorrhagic anemia; M79.81 Nontraumatic hematoma of soft tissue; E87.1 Hypo-osmolality and hyponatremia; Z87.820 Personal history of traumatic brain injury; F20.9 Schizophrenia, unspecified; F17.210 Nicotine dependence, cigarettes, uncomplicated; E44.1 Mild protein-calorie malnutrition; Z68.26 Body mass index [BMI] 26.0-26.9, adult; F31.9 Bipolar disorder, unspecified; Z86.718 Personal history of other venous thrombosis and embolism; Z79.01 Long term (current) use of anticoagulants; G40.909 Epilepsy, unspecified, not intractable, without status epilepticus; E87.3 Alkalosis; E86.1 Hypovolemia
CPT/HCPCS: 2NAP; 84133; 84300; 36592; 73552; 74176; 81001; 82436; 82570; 83010; 86920; 87086; 93005; 93010; 97110-GO; 97116-GO; 97162-GP; 97530-GO; J3490; J7120; P9016